=== PATIENT | female | born 1955 | race Caucasian/White ===

== ENCOUNTER 2018-06-12 12:04 | Emergency (ER) | payer MEDICARE ==
[2018-06-12 12:22] VITALS: BP 161/89
--- NOTE | 2018-06-12 13:34 | UC ---
Cardiac HPI - HPI Summary HPI Summary: 2 days of sharp right-sided chest pain that radiates to her back. States she feels like how it felt when she broke her ribs a few years ago. Pain is worse with movement and deep breaths. Denies any recent trauma. - History of Current Complaint Chief Complaint: UCGeneralIllness Stated Complaint: CHEST /RTSIDE PAIN Time Seen by Provider: 06/12/18 12:12 Hx Obtained From: Patient Onset/Duration: Gradual Onset, Lasting Days, Still Present Timing: Constant Initial Severity: Moderate Current Severity: Moderate Pain Intensity: 10 Chest Pain Location: Discrete at: - RIGHT ANTERIOR CHEST Character: Sharp/Stabbing Aggravating Factor(s): Movement, Deep Breaths Alleviating Factor(s): Nothing Associated Signs & Symptoms: Positive: Chest Pain, Back Pain. Negative: Anxiety , Dizziness, SOB, Diaphoresis, Nausea/Vomiting - Allergy/Home Medications Allergies/Adverse Reactions: Allergies Allergy/AdvReac Type Severity Reaction Status Date / Time ipratropium AdvReac See Comment Verified 06/12/18 12:11 PMH/Surg Hx/FS Hx/Imm Hx Cardiovascular History: Hypertension Respiratory History: COPD Other History Of: Negative For: Anticoagulant Therapy - Surgical History Surgical History: Yes Surgery Procedure, Year, and Place: BILATERAL breast augmentation, appendectomy , colon resection, BILATERAL KNEE meniscus REPAIR, tonsils - Family History Known Family History: Positive: Unknown - Social History Alcohol Use: Occasionally Alcohol Amount: 1 glass of wine Substance Use Type: None Smoking Status (MU): Former Smoker Length of Time of Smoking/Using Tobacco: 1 year When Did the Patient Quit Smoking/Using Tobacco: june 15, 2013 - Immunization History Most Recent Influenza Vaccination: never Most Recent Tetanus Shot: 2008 dpt Most Recent Pneumonia Vaccination: never Review of Systems All Other Systems Reviewed And Are Negative: Yes Constitutional: Positive: Negative Skin: Positive: Negative Respiratory: Positive: Negative Cardiovascular: Positive: Chest Pain Gastrointestinal: Positive: Negative Physical Exam Triage Information Reviewed: Yes Appearance: Well-Appearing, No Pain Distress, Well-Nourished Vital Signs: Initial Vital Signs Temp 97.4 F 06/12/18 12:14 Pulse 70 06/12/18 12:14 Resp 18 06/12/18 12:14 BP 161/89 06/12/18 12:14 Pulse Ox 96 06/12/18 12:14 Vital Signs Reviewed: Yes Eyes: Positive: Conjunctiva Clear ENT: Positive: Hearing grossly normal Neck: Positive: Supple, Nontender, No Lymphadenopathy Respiratory: Positive: Normal breath sounds, No respiratory distress, No accessory muscle use, Other: - RIGHT SIDED ANTERIOR CHEST WALL TENDERNESS Cardiovascular Exam: Normal Abdomen Description: Positive: Soft Musculoskeletal: Positive: No Edema Neurological: Positive: Alert Psychological: Positive: Age Appropriate Behavior Skin: Negative: Rashes Diagnostics - Radiology CXR Radiology Interpretation Completed By: Radiologist Summary of Radiographic Findings: Stigmata of obstructive lung disease. No acute pulmonary or cardiac process evident. - Assessment/Plan Course Of Treatment: PATIENT'S SYMPTOMS LIKELY DUE TO PLEURISY. WILL TRY A SHORT COURSE OF STEROIDS AND HAVE RECOMMENDED SHE TAKE IBUPROFEN AROUND THE CLOCK TO SEE IF THIS HELPS HER SYMPTOMS. CHEST X-RAY TODAY SHOWS CHANGES CONSISTENT WITH COPD. ADVISED TO GO TO THE ER WITHOUT FAIL IF HER SYMPTOMS WORSEN. LOW SUSPICION FOR CARDIAC ETIOLOGY AT PRESENT ALTHOUGH GIVEN THAT WE ARE UNABLE TO RULE THIS OUT ENTIRELY WE DISCUSSED TRANSFER TO [facility] [place] ER FOR FURTHER EVALUATION WHICH PATIENT HAS DECLINED TODAY. SHE STATES SHE WILL GO TO THE ED IF HER SYMPTOMS DO NOT IMPROVE OR WORSEN OVER THE NEXT DAY OR 2. - Clinical Impression Provider Diagnosis: Pleurisy Discharge - Sign-Out/Discharge Documenting (check all that apply): Patient Departure All imaging exams completed and their final reports reviewed: Yes - Discharge Plan Condition: Stable Disposition: HOME Prescriptions: predniSONE TAB* [Deltasone 20 MG TAB*] 40 mg PO DAILY #10 tab Patient Education Materials: Pleurisy (ED) Referrals: Katlin Gallegos MD [Primary Care Provider] - 1 Week Additional Instructions: CHEST X-RAY TODAY REVEALS CHANGES CONSISTENT WITH COPD BUT NO CLEAR CAUSE OF YOUR SYMPTOMS TODAY. CONSIDER CHEST WALL PAIN VERSUS PLEURITIS. WILL TRY SHORT BURST OF STEROIDS SEE IF THIS HELPS WITH YOUR SYMPTOMS. RECOMMEND YOU TAKE IBUPROFEN 600 MG EVERY 6 HOURS. STAY WELL-HYDRATED. FOLLOW-UP WITH YOUR PCP. GO TO THE ER WITHOUT FAIL IF YOU DEVELOP WORSENING PAIN, SHORTNESS OF BREATH, FEVER, NAUSEA, SWEATS OR ANY OTHER CONCERNING SYMPTOMS. - Billing Disposition and Condition Condition: STABLE Disposition: Home
== END 2018-06-12 13:46 | disposition home or self-care (01) ==
LOC: UCEAST 12:04
DX: R09.1 Pleurisy (principal); I10 Essential (primary) hypertension; J44.9 Chronic obstructive pulmonary disease, unspecified; Z87.891 Personal history of nicotine dependence; Z88.8 Allergy status to other drugs, medicaments and biological substances
CPT/HCPCS: 71046; 99212; G0463

== ENCOUNTER 2018-08-16 17:04 | Emergency (ER) | payer MEDICARE ==
--- NOTE | 2018-08-16 17:35 | ED ---
GI/ HPI - HPI Summary HPI Summary: Patient is a 63 y/o F presenting to ED with complaints of lower abdominal pain and inability to urinate. She notes that at the beginning of Jul, 2018, patient experienced onset of UTI-like Sx and reports that she had been experiencing "intense" abdominal cramps. Cramps progressively worsened, patient began to experience episodes of vomiting. Patient went to [facility] clinic yesterday, . Urine cultures sent, it was noted that patient had blood in urine on UA. Patient was started on Cefdinir. Sx yesterday are described as "easy", denying pain but reports reduction of urine production. No change in appetite or fluid intake is noted. Today, 08/16/18, she notes urgency of urination with abdominal pain and inability to urinate. No vaginal bleeding is reported. Patient states she did not notice any hematuria. PMHx of HLD, HTN. Patient is on Prozac. PSHx of cholecystectomy. She notes that she consumed "a couple of shots" before coming here. Occasional marijuana usage is noted. FMHx of cardiac disease, cancer. On triage, pain is rated 8/10, nothing is noted to aggravate/alleviate Sx. Home medications and allergies are reviewed. - History of Current Complaint Chief Complaint: EDAbdPain Time Seen by Provider: 08/16/18 17:24 Stated Complaint: POSS UTI PER PT Hx Obtained From: Patient Onset/Duration: Started Weeks Ago - Sx onset a month ago, July 2018, Still Present Timing: Constant, Lasting Weeks - Sx onset a month ago, July 2018 Severity: Severe - 8/10 Current Severity: Severe - 8/10 Pain Intensity: 8 Location of Pain: Other - lower Pain Characteristics: Cramping Associated Signs and Symptoms: Positive: Vomiting, Abdominal Pain, UTI Symptoms - urgency of urination, inability to urinate. Negative: Hematuria - no hematuria noticed by patient Additional Signs & Symptoms: Negative: Vaginal Bleeding Aggravating Factor(s): Nothing Alleviating Factor(s): Nothing - Allergy/Home Medications Allergies/Adverse Reactions: Allergies Allergy/AdvReac Type Severity Reaction Status Date / Time ipratropium AdvReac See Comment Verified 06/12/18 12:11 Home Medications: Home Medications Krill Oil 1,250 mg PO BID 08/16/18 [History Confirmed 08/16/18] Ubidecarenone [Coq10] 100 mg PO DAILY 08/16/18 [History Confirmed 08/16/18] PMH/Surg Hx/FS Hx/Imm Hx Endocrine/Hematology History: Denies: Hx Anticoagulant Therapy, Hx Diabetes, Hx Thyroid Disease Cardiovascular History: Reports: Hx Hypertension Denies: Hx Pacemaker/ICD Respiratory History: Reports: Hx Chronic Obstructive Pulmonary Disease (COPD), Other Respiratory Problems/Disorders - Hx of pneumonia Denies: Hx Asthma GI History: Reports: Other GI Disorders - colon resection diviticulitis Denies: Hx Ulcer History: Reports: Other Problems/Disorders - uti Denies: Hx Renal Disease Musculoskeletal History: Reports: Hx Back Problems - neck djd Denies: Hx Osteoporosis Sensory History: Reports: Hx Contacts or Glasses Denies: Hx Hearing Aid Opthamlomology History: Reports: Hx Contacts or Glasses Neurological History: Reports: Hx Seizures - during etoh withdrawal Psychiatric History: Reports: Hx Anxiety, Hx Depression, Hx Panic Disorder, Hx Substance Abuse - ETOH Denies: Hx Eating Disorder, Hx of Violent Episodes Against Others - Cancer History Hx Chemotherapy: No Hx Radiation Therapy: No - Surgical History Surgery Procedure, Year, and Place: BILATERAL breast augmentation, appendectomy , colon resection, BILATERAL KNEE meniscus REPAIR, tonsils Hx Anesthesia Reactions: No - Immunization History Date of Tetanus Vaccine: Unknown Infectious Disease History: No Infectious Disease History: Denies: Hx Clostridium Difficile, Hx Hepatitis, Hx Human Immunodeficiency Virus (HIV), Hx of Known/Suspected MRSA, Hx Shingles, Hx Tuberculosis, Hx Known/ Suspected VRE, Hx Known/Suspected VRSA, History Other Infectious Disease, Traveled Outside the [place] in Last 30 Days - Family History Known Family History: Positive: Cardiac Disease, Other - FMHx of cancer - Social History Alcohol Use: Occasionally Alcohol Amount: 1 glass of wine Substance Use Type: Reports: None Smoking Status (MU): Former Smoker Length of Time of Smoking/Using Tobacco: 1 year Review of Systems Positive: Abdominal Pain, Vomiting Genitourinary: Other - POSITIVE - INABILITY TO URINATE; NEGATIVE - VAGINAL BLEEDING Positive: urgency - of urination. Negative: hematuria - none noticed by patient All Other Systems Reviewed And Are Negative: Yes Physical Exam - Summary Physical Exam Summary: Appearance: Ill-appearing, moderate pain distress, well-nourished. Left breast is smaller than right. Skin: Warm, color reflects adequate perfusion, dry; Midline scar is noted. Head: Normal Head/Face inspection, atraumatic Eyes: Conjunctiva clear ENT: Normal inspection Neck: Supple, no nodes, no JVD Respiratory: Lungs clear, normal breath sounds, no respiratory distress Cardio: RRR, No murmur, pulses normal, brisk capillary refill Abdomen: Soft, RLQ tenderness is noted, no guarding, no rebound, no masses palpated. Bowel sounds: Present Musculoskeletal: Strength Intact/ROM intact, no calf tenderness, no edema. Psychological: Normal Neuro: Alert, muscle tone normal, no focal deficit Triage Information Reviewed: Yes Vital Signs On Initial Exam: Initial Vitals Temp Pulse Resp BP Pulse Ox 98.5 F 86 18 184/94 97 08/16/18 17:05 08/16/18 17:05 08/16/18 17:05 08/16/18 17:05 08/16/18 17:05 Vital Signs Reviewed: Yes Diagnostics - Vital Signs Vital Signs Temp Pulse Resp BP Pulse Ox 08/16/18 17:05 98.5 F 86 18 184/94 97 - Laboratory Result Diagrams: 08/16/18 17:59 08/16/18 17:59 Lab Statement: Any lab studies that have been ordered have been reviewed, and results considered in the medical decision making process. Re-Evaluation - Re-Evaluation First Eval Re-Evaluation Time: 19:43 Comment: Bladder scan showed 52 cc urine. Patient has urinated in ED. Results of labs and tests were discussed with the patient. She will be discharged to home and follow up with PCP. Patient is agreeable with this. GIGU Course/Dx - Course Course Of Treatment: Patient is a 63 y/o F presenting to ED with complaints of lower abdominal pain and inability to urinate. She notes that at the beginning of Jul, 2018, patient experienced onset of UTI-like Sx and reports that she had been experiencing "intense" abdominal cramps. Cramps progressively worsened, patient began to experience episodes of vomiting. Patient went to [facility] clinic yesterday, 08/15/18. Urine cultures sent, it was noted that patient had blood in urine on UA. Patient was started on Cefdinir. Sx yesterday are described as "easy", denying pain but reports reduction of urine production. No change in appetite or fluid intake is noted. Today, 08/16/18, she notes urgency of urination with abdominal pain and inability to urinate. No vaginal bleeding is reported. Patient states she did not notice any hematuria. PMHx of HLD, HTN. Patient is on Prozac. PSHx of cholecystectomy. She notes that she consumed "a couple of shots" before coming here. Occasional marijuana usage is noted. On physical exam, midline scar is noted, left breast is larger than right breast, RLQ tenderness with no guarding, no rebound, no masses palpated. UA showed trace ketones, 2+ blood, trace leukocyte esterase, 1+ WBC, 3+ RBC, present squamous eptih cells, glucose 1+, ascorbic acid present. Serum alcohol is 66. During ED course, patient received pyridium 200 mg PO. Bladder scan showed 52 cc urine. Patient later urinated in ED. Results of labs and tests were discussed with the patient. She will be discharged to home and follow up with PCP. Patient is agreeable with this. - Diagnoses Provider Diagnoses: UTI (urinary tract infection), Abdominal pain Discharge - Sign-Out/Discharge Documenting (check all that apply): Patient Departure - discharge Patient Received Moderate/Deep Sedation with Procedure: No - Discharge Plan Condition: Stable Disposition: HOME Prescriptions: Phenazopyridine 200 mg (NF) [Pyridium 200 MG tab *] 200 mg PO TID PRN #12 tab PRN Reason: Pain Patient Education Materials: Urinary Tract Infection in Women (ED) Referrals: Katlin Gallegos MD [Primary Care Provider] - 2 Days Additional Instructions: You were able to urinate while you were in the ER. We have sent your urine for culture also, just like [facility] has. We will notify you if you need to change your antibiotics based on these culture results. Your kidney function was normal, as were your other lab tests, and your cramping improved while you were in the ER. You do not have to finish the pyridium prescription, but you may use it if you feel like you cannot urinate, or if you have abdominal cramping. Continue the Cefdinir antibiotic as directed and finish the entire prescription. Return to the ER if you have new or worsening symptoms. - Attestation Statements Document Initiated by Scribe: Yes Documenting Scribe: LION VARGAS Provider For Whom Sushila is Documenting (Include Credential): LEDY CARTER MD Scribe Attestation: LION Gifford, scribed for LEDY CARTER MD on 08/16/18 at 2110. Status of Scribe Document: Ready
[2018-08-16 18:07] LABS: ABS Basophils 0.1 10^3/ul (0-0.2); ABS Eosinophils 0.2 10^3/ul (0-0.6); ABS Lymphocytes 1.8 10^3/ul (1.0-4.8); ABS Monocytes 0.8 10^3/ul (0-0.8); ABS Neutrophils 5.3 10^3/ul (1.5-7.7); Eosinophil % 2.3 %; Hematocrit 42 % (35-47); Hemoglobin 14.1 g/dL (12.0-16.0); Lymphocyte % 22.5 %; Mean Corpuscular HGB Conc 34 g/dL (31-36); Mean Corpuscular Hemoglobin 32 pg (27-31); Mean Corpuscular Volume 95 fL (80-97); Mean Platelet Volume 7.6 fL (7.4-10.4); Platelet Count 282 10^3/uL (150-450); Red Blood Count 4.41 10^6 /uL (3.70-4.87); Red Cell Distribution Width 13 % (10.5-15); White Blood Count 8.1 10^3/uL (3.5-10.8)
[2018-08-16 18:11] LABS: Urine Appearance Clear; Urine Bacteria Absent (Absent); Urine Bilirubin Negative (Negative); Urine Blood 2+ (Negative); Urine Color Yellow; Urine Glucose 1+(50 mg/dL) (Negative); Urine Ketones Trace (Negative); Urine Nitrite Negative (Negative); Urine Protein Negative (Negative); Urine Red Blood Cell 3+(>10/hpf) (Absent); Urine Specific Gravity 1.014 (1.010-1.030); Urine Squamous Epithelial Cell Present (Absent); Urine Urobilinogen Negative (Negative); Urine White Blood Cell 1+(6-10/hpf) (Absent)
[2018-08-16 18:24] LABS: Albumin 4.3 g/dL (3.2-5.2); Albumin/Globulin Ratio 1.7 (1-3); BUN/Creatinine Ratio 21.9 (8-20); C Reactive Protein 2.16 mg/L (<8.01); Calcium 9.2 mg/dL (8.6-10.3); EGFR African American 113.4 (>60); EGFR Non-African American 93.7 (>60); Globulin 2.5 g/dL (2-4); Potassium 3.5 mmol/L (3.5-5.0); Total Bilirubin 0.4 mg/dL (0.2-1.0); Total Protein 6.8 g/dL (6.4-8.9)
[2018-08-16] MEDS ORDERED: Phenazopyridine TAB* 100 MG PO ONE (19:52)
[2018-08-16 20:15] VITALS: BP 168/101
== END 2018-08-16 20:14 | disposition home or self-care (01) ==
LOC: ED 17:04
DX: N39.0 Urinary tract infection, site not specified (principal); R10.30 Lower abdominal pain, unspecified; R11.10 Vomiting, unspecified; I10 Essential (primary) hypertension; Z87.891 Personal history of nicotine dependence
CPT/HCPCS: 36415; 80053; 80320; 81003; 81015; 85025; 86140; 87086; 99283; A9270-GY; G0480

== ENCOUNTER 2018-11-16 20:55 | Emergency (ER) | payer MEDICARE ==
[2018-11-16 21:02] VITALS: BP 161/87
[2018-11-16 21:19] LABS: ABS Basophils 0.1 10^3/ul (0-0.2); ABS Lymphocytes 2.9 10^3/ul (1.0-4.8); ABS Monocytes 0.7 10^3/ul (0-0.8); Eosinophil % 0.7 %; Hematocrit 46 % (35-47); Hemoglobin 15.7 g/dL (12.0-16.0); Lymphocyte % 43.5 %; Mean Corpuscular HGB Conc 34 g/dL (31-36); Mean Corpuscular Hemoglobin 33 pg (27-31); Mean Corpuscular Volume 98 fL (80-97); Mean Platelet Volume 7.3 fL (7.4-10.4); Nucleated Red Blood Cells % 0.2; Platelet Count 216 10^3/uL (150-450); Red Blood Count 4.72 10^6 /uL (3.70-4.87); Red Cell Distribution Width 14 % (10-15); White Blood Count 6.7 10^3/uL (3.5-10.8)
[2018-11-16 21:29] LABS: INR 0.93 (0.82-1.09)
[2018-11-16] MEDS ORDERED: NS 0.9% 1000 ML** 1,000 ML IV ONE (21:34)
[2018-11-16] MEDS ORDERED: Metoclopramide IV* 5 MG/ML 2 ML VIAL IV ONE (21:34)
[2018-11-16 21:36] LABS: Albumin 4.4 g/dL (3.2-5.2); Albumin/Globulin Ratio 1.6 (1-3); BUN/Creatinine Ratio 14.1 (8-20); Calcium 8.8 mg/dL (8.6-10.3); EGFR African American 113.4 (>60); EGFR Non-African American 93.7 (>60); Globulin 2.7 g/dL (2-4); Potassium 3.3 mmol/L (3.5-5.0); Total Bilirubin 0.6 mg/dL (0.2-1.0); Total Protein 7.1 g/dL (6.4-8.9)
--- NOTE | 2018-11-16 21:37 | ED ---
Complex/Multi-Sys Presentation - HPI Summary HPI Summary: This pt is a 63 y/o female w hx EtOH abuse presenting to [facility] via EMS for hand spasms today. Pt reports she is a chronic alcoholic and today drank over 1L of vodka. She notes she had hand spasms/locking in the past about a couple of years ago due to low electrolytes. Per EMS pt has hx of seizures and upon arriving to the ED pt was c/o eye twitching but did not have any seizure like activity. Pt states she had a headache for the past couple of days, denies headache today. No current photophobia, nausea or vomiting. No trauma/falls. No recent seizures. EMS states pt has not eaten in 2-3 days. - History Of Current Complaint Chief Complaint: EDGeneral Time Seen by Provider: 11/16/18 21:05 Hx Obtained From: Patient Onset/Duration: Lasting Hours, Still Present Timing: Hours Severity Currently: Moderate Aggravating Factor(s): nothing Alleviating Factor(s): nothing Associated Signs And Symptoms: Positive: Headache, Other - POSITIVE: photophobia , hand spasms/locked.. Negative: Nausea, Fever Related History: Similar Episode/Diagnosed As: - a couple of years ago when she had low electrolytes - Allergies/Home Medications Allergies/Adverse Reactions: Allergies Allergy/AdvReac Type Severity Reaction Status Date / Time ipratropium AdvReac See Comment Verified 11/16/18 21:02 PMH/Surg Hx/FS Hx/Imm Hx Endocrine/Hematology History: Denies: Hx Anticoagulant Therapy, Hx Diabetes, Hx Thyroid Disease Cardiovascular History: Reports: Hx Hypercholesterolemia, Hx Hypertension Denies: Hx Pacemaker/ICD Respiratory History: Reports: Hx Chronic Obstructive Pulmonary Disease (COPD), Hx Pneumonia, Other Respiratory Problems/Disorders - Hx of pneumonia Denies: Hx Asthma GI History: Reports: Hx Diverticulosis - diverticulitis , Other GI Disorders - colon resection diviticulitis Denies: Hx Ulcer History: Reports: Other Problems/Disorders - uti Denies: Hx Renal Disease Musculoskeletal History: Reports: Hx Back Problems - neck djd Denies: Hx Osteoporosis Sensory History: Reports: Hx Contacts or Glasses Denies: Hx Hearing Aid Opthamlomology History: Reports: Hx Contacts or Glasses Neurological History: Reports: Hx Seizures - during etoh withdrawal Psychiatric History: Reports: Hx Anxiety, Hx Depression, Hx Panic Disorder, Hx Substance Abuse - ETOH Denies: Hx Eating Disorder, Hx of Violent Episodes Against Others - Cancer History Hx Chemotherapy: No Hx Radiation Therapy: No - Surgical History Surgery Procedure, Year, and Place: BILATERAL breast augmentation, appendectomy , colon resection, BILATERAL KNEE meniscus REPAIR, tonsils, CHOLECYSTECTOMY Hx Anesthesia Reactions: No - Immunization History Date of Tetanus Vaccine: Unknown Infectious Disease History: No Infectious Disease History: Denies: Hx Clostridium Difficile, Hx Hepatitis, Hx Human Immunodeficiency Virus (HIV), Hx of Known/Suspected MRSA, Hx Shingles, Hx Tuberculosis, Hx Known/ Suspected VRE, Hx Known/Suspected VRSA, History Other Infectious Disease, Traveled Outside the [place] in Last 30 Days - Family History Known Family History: Positive: Cardiac Disease, Other - FMHx of cancer - Social History Alcohol Use: Daily Alcohol Amount: hx ETOH abuse Hx Substance Use: Yes Substance Use Type: Reports: None Hx Tobacco Use: Yes Smoking Status (MU): Former Smoker Length of Time of Smoking/Using Tobacco: 1 year Review of Systems Negative: Fever, Chills Negative: Vomiting, Nausea Musculoskeletal: Other - POSITIVE: hand spasms/locked Positive: Headache - none today All Other Systems Reviewed And Are Negative: Yes Physical Exam - Summary Physical Exam Summary: Constitutional: Well-developed, Well-nourished, Alert. (-) Distressed Skin: Warm, Dry HENT: Normocephalic; Atraumatic Eyes: Conjunctiva normal Neck: Musculoskeletal ROM normal neck. (-) JVD, (-) Stridor Cardio: Rhythm regular, rate normal, Heart sounds normal; Intact distal pulses; Radial pulses are 2+ and symmetric. (-) Murmur Pulmonary/Chest wall: Effort normal. (-) Respiratory distress, (-) Wheezes, (-) Rales Abd: Soft, (-) tenderness, (-) Distension, (-) Guarding, (-) Rebound Musculoskeletal: (-) Edema. Clenching of the fists. Lymph: (-) Cervical adenopathy Neuro: Alert, Oriented x3, CN 2-12 intact. Ambulates w steady gait. Psych: Mood and affect Normal Triage Information Reviewed: Yes Vital Signs On Initial Exam: Initial Vitals Temp Pulse Resp BP Pulse Ox 98.3 F 78 18 161/87 98 11/16/18 20:57 11/16/18 20:57 11/16/18 20:57 11/16/18 20:57 11/16/18 20:57 Vital Signs Reviewed: Yes Diagnostics - Vital Signs Vital Signs Temp Pulse Resp BP Pulse Ox 11/16/18 20:57 98.3 F 78 18 161/87 98 - Laboratory Lab Results: Lab Results 11/16/18 Range/Units 21:11 WBC 6.7 (3.5-10.8) 10^3/uL RBC 4.72 (3.70-4.87) 10^6 /uL Hgb 15.7 (12.0-16.0) g/dL Hct 46 (35-47) % MCV 98 H (80-97) fL MCH 33 H (27-31) pg MCHC 34 (31-36) g/dL RDW 14 (10-15) % Plt Count 216 (150-450) 10^3/uL MPV 7.3 L (7.4-10.4) fL Neut % (Auto) 44.8 % Lymph % (Auto) 43.5 % Sutter % (Auto) 9.8 % Eos % (Auto) 0.7 % Baso % (Auto) 1.2 % Absolute Neuts (auto) 3.0 (1.5-7.7) 10^3/ul Absolute Lymphs (auto) 2.9 (1.0-4.8) 10^3/ul Absolute Monos (auto) 0.7 (0-0.8) 10^3/ul Absolute Eos (auto) 0.0 (0-0.6) 10^3/ul Absolute Basos (auto) 0.1 (0-0.2) 10^3/ul Absolute Nucleated RBC 0.0 10^3/ul Nucleated RBC % 0.2 Result Diagrams: 11/16/18 21:11 11/16/18 21:11 Lab Statement: Any lab studies that have been ordered have been reviewed, and results considered in the medical decision making process. Re-Evaluation - Re-Evaluation First Eval Re-Evaluation Time: 21:58 Comment: Labs notable for K 3.3 will replete however on re-eval, pt eloped. Attempted to call PD to find patient for concern that she has IV in arm. Complex Multi-Symp Course/Dx Course Of Treatment: 53-year-old female the history of alcohol abuse presents with and cramps as well as headache for several days. This is a patient who presents with headache (now resolved). History of headaches of similar type. No trauma. This is not the worst headache patient has had, and no additional features today to suggest need for further workup on a truly emergent basis ( imaging, LP, etc). Will give IVF, reglan for intermittent nausea. Regarding hand cramping, we'll check electrolytes, however patient was noted to voluntarily unclamp hands despite saying she couldnt. - Diagnoses Provider Diagnoses: Alcohol abuse, Muscle cramp Discharge ED - Sign-Out/Discharge Documenting (check all that apply): Patient Departure - Elopement Patient Received Moderate/Deep Sedation with Procedure: No - Discharge Plan Condition: Stable Disposition: ELOPEMENT Patient Education Materials: Tension Headache (ED), Hypokalemia (ED), Muscle Cramp (ED) Referrals: Katlin Gallegos MD [Primary Care Provider] - Additional Instructions: You were seen in the emergency department for muscle cramps. He had low potassium, we give it to here. Please try to cut down on drinking. You can try this by drinking one less drink per day and slowly cutting down. You also had a headache, we gave you medicine and some fluids. Please return for continued headaches, passing out, fevers, trouble breathing, chest pain, or if you're concerned. - Billing Disposition and Condition Condition: STABLE Disposition: Elopement - Attestation Statements Document Initiated by Sushila: Yes Documenting Scribe: April Valentine Provider For Whom Sushila is Documenting (Include Credential): Jocelyn Flanagan MD Scribe Attestation: I, April Valentine, scribed for Jocelyn Flanagan MD on 11/16/18 at 2209. Scribe Documentation Reviewed: Yes Provider Attestation: The documentation as recorded by the April odonnell accurately reflects the service I personally performed and the decisions made by , Jocelyn Flanagan MD Status of Scribe Document: Viewed
[2018-11-16] MEDS ORDERED: Potassium Chlor TAB* 20 MEQ TAB.ER PO ONE (21:38)
[2018-11-16] MEDS ORDERED: LORazepam TAB(*) 1 MG PO ONE (21:39)
--- OUTSIDE RECORDS SUMMARY | 2018-11-16 22:00 | XMS REPORT | Continuity of Care Document ---
:1955 External Reference #:[id number] Author Name Arcelia Doyle Care Team Providers Name Role Phone Katlin Gallegos MD Primary Care Physician Unavailable Payers Date Identification Numbers Payment Provider Subscriber Policy Number: [id number] Medicare Blue Ppo Elbert Mueller PayID: [id number] [address] [address] [place] Galindo [address] Advance Directives Type Date Description Status Comment MOLST 12/17/2017 MOLST Current and Verified Problems Active Problems Provider Date Lumbar radiculopathy Maurisio Mcwilliams M.D. Onset: 08/25/2015 Cervical spondylosis without myelopathy Maurisio Mcwilliams M.D. Onset: 08/25/2015 Hypercholesterolemia Katlin Gallegos M.D. Onset: 08/30/2015 Impaired fasting glycaemia Katlin Gallegos M.D. Onset: 08/30/2015 Gastritis Katlin Gallegos M.D. Onset: 01/08/2016 Note: PPI 40 since 09/29 Osteopenia Katlin Gallegos M.D. Onset: 06/20/2016 Alcohol abuse Katlin Gallegos M.D. 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 Tobacco Use Start: Unknown Former Cigarette End: Unknown Smoker Smoking Status Reviewed: 10/21/18 Former Cigarette Smoker ETOH Use Has consumed alcohol underwent inpatient in the past rehab in [facility] 2013 , has been sober since Tobacco Use Start: Unknown Patient is a former Started age 16; quit End: Unknown smoker 2013; smoked a pack per week Quit January 2018 Recreational Drug Use Denies Drug Use Exercise Type/Frequency Exercises regularly Allergies, Adverse Reactions, Alerts Description No Known Drug Allergies Medications Active Medications SIG Qnty Indications Ordering Date Provider Krill Oil [place]-3 Twice Daily Unknown 08/16/2018 500mg Capsules Fluticasone use 2 sprays in each 16units J30.9 Lilyofia Joel, 05/06/2018 Propionate nostril one time a CREDIT CONTROL MANAGER day 50mcg/Act Suspension Loratadine 1 by mouth every day 90caps J30.9 ofia Joel, 05/06/2018 10mg CREDIT CONTROL MANAGER Capsules Nystatin swish and spit 10 cc 60ml [facility] 01/28/2018 bid X 7 days Deo Gallegos [id number] Suspension Shingrix intramuscular x 1 1units [facility] 12/17/2017 50mcg then repeat in 4 Deo Gallegos Suspension Rec months Symbicort 2 puff twice a day 10.2units [facility], 10/23/2016 CREDIT CONTROL MANAGER 160-4.5mcg/Act Aerosol Fluoxetine HCL Take One Capsule By 90caps Katlin 07/25/2016 10mg Mouth Every Day Deo Gallegos Capsules Omeprazole Take One Capsule By 90caps K29.00 [facility] 06/20/2016 20mg Mouth Every Day Deo Gallegos Capsules DR Atorvastatin Take One Tablet By 90tabs R73.01 [facility] 08/30/2015 Calcium Mouth Every Day Deo Gallegos 20mg Tablets Ventolin HFA 2 puffs by mouth 8gm J20.9 Katlin four times a day as Deo Gallegos 108(90Base) mcg/Act needed Aerosol Ibuprofen as needed Unknown 200mg Tablets Ultra Women Daily once daily Unknown Multivitamin Tablets ER Amlodipine Besylate Take One Tablet By 90tabs Katlin Mouth Every Day Deo Gallegos 5mg Tablets History Medications Breo Ellipta 1 puff inhaled 60units [facility] 09/02/2016 - daily Deo Gallegos 10/23/2016 200-25mcg/Inh Aerosol Crill Oil [facility] 06/20/2016 - Deo Gallegos 12/17/2017 Fluoxetine 1 by mouth every 90caps Katlin 04/22/2016 - 10mg Capsules day Deo Gallegos 04/22/2016 Fluoxetine HCL Not Taking 90caps [facility] 04/22/2016 - 10mg Deo Gallegos 06/20/2016 Capsules Fluoxetine HCL once daily 30tabs Katlin 04/19/2016 - 10mg Deo Gallegos 04/22/2016 Tablets Prednisone 2 tablets by mouth 10tabs J20.9 Emil Canseco, 04/17/2016 - 20mg Tablets daily x's 5 days [employer]ALTH AND WELLNESS MANAGER 04/22/2016 in the morning Azithromycin 2 tabs by mouth on 6tabs J20.9 Emil Canseco, 04/17/2016 - 250mg day 1; 1 tab by HEALTH AND WELLNESS MANAGER 04/22/2016 Tablets mouth every day on days 2-5 Diazepam stopped by MD1 tab 30tabs F41.9 [facility] 10/11/2015 - 5mg Tablets as needed for Deo Gallegos 06/20/2016 anxiety attacks Omeprazole take one capsule 90caps K29.00 [facility] 10/11/2015 - 40mg Capsules by mouth every day Deo Gallegos 06/20/2016 DR Ayesha Gerard 1 puff twice a day 1units Katlin 08/23/2015 - Deo Gallegos 01/08/2016 400mcg/Act Aerosol Spiriva Handihaler inhale one capsule 30caps J44.9 [facility] 07/26/2015 - 18mcg via handi-haler Deo Gallegos 08/23/2015 Capsules once daily- use 2 inhalations to receive full dosage Symbicort 2 puff inhaled 1units J44.9 [facility] 07/26/2015 - 160-4.5mcg/Act twice a day Deo Gallegos 09/02/2016 Aerosol Co Q-10 Unknown - Capsules 08/19/2017 Acetaminophen Extra 2 tab by mouth a Unknown - Strength day as needed 08/18/2018 500mg Tablets Vitamin B-12 Unknown - Tablets 01/07/2016 Biotin once daily Unknown - 5000mcg Tablets 01/07/2016 Symbicort 2 puff twice a day 18gm Katlin - 160-4.5mcg/Act Deo Gallegos 07/26/2015 Aerosol Vicodin 1-2 by mouth qd 30tabs Katlin - 5-300mg Tablets prn Deo Gallegos 04/17/2016 Diazepam Unknown - 5mg Tablets 10/11/2015 Fluoxetine HCL 1 daily 90caps Katlin - 20mg Deo Gallegos 04/19/2016 Capsules Omeprazole take 1 capsule by 90caps Katlin - 20mg Capsules mouth daily Deo Gallegos 10/11/2015 Cyclobenzaprine HCL 1 by mouth daily 30tabs Katlin - 10mg prmal Gallegos M.D. 01/08/2016 Tablets Immunizations CPT Code Status Date Vaccine Lot # [id number] Given 01/12/2018 Influenza Virus Vaccine, Quadrivalent, Split, Preservative Free [id number] Given 12/17/2017 Pneumococcal Conjugate Vaccine 13 Valent For [id number] Intramuscular Use 73050 Given 02/12/2016 Influ Virus Vaccine, Quadrivalent, Split Virus, [place] [id number] Given 07/26/2009 Hepatitis B Vaccine Adult Dosage 16398 Given 09/20/2008 Tdap - Tetanus/Diptheria/Acellular Pertussis Vital Signs Date Vital Result Comment 10/21/2018 1:03pm Height 65 inches 5'5" Weight 154.00 lb Heart Rate 76 /min BP Systolic Sitting 176 mmHg Rue reg cuff BP Diastolic Sitting 90 mmHg Rue reg cuff O2 % BldC Oximetry 91 % BMI (Body Mass Index) 25.6 kg/m2 08/19/2018 1:55pm Height 65 inches 5'5" Weight 154.50 lb Heart Rate 89 /min BP Systolic 134 mmHg BP Diastolic 75 mmHg Body Temperature 97.6 F O2 % BldC Oximetry 96 % BMI (Body Mass Index) 25.7 kg/m2 Last Menstrual Period [id number] 05/06/2018 1:58pm Height 65 inches 5'5" Weight 164.00 lb Heart Rate 85 /min BP Systolic Sitting 128 mmHg BP Diastolic Sitting 82 mmHg Body Temperature 98.4 F O2 % BldC Oximetry 96 % BMI (Body Mass Index) 27.3 kg/m2 12/17/2017 1:20pm Height 65 inches 5'5" Weight 162.00 lb Heart Rate 72 /min BP Systolic Sitting 130 mmHg BP Diastolic Sitting 78 mmHg O2 % BldC Oximetry 96 % BMI (Body Mass Index) 27.0 kg/m2 06/20/2016 11:45am Weight 169.25 lb Heart Rate 76 /min BP Systolic 140 mmHg BP Diastolic 76 mmHg Body Temperature 97.6 F O2 % BldC Oximetry 96 % 04/17/2016 1:03pm Weight 164.12 lb Heart Rate 92 /min BP Systolic Sitting 138 mmHg BP Diastolic Sitting 86 mmHg Body Temperature 99.7 F O2 % BldC Oximetry 97 % 01/08/2016 11:41am Height 65 inches 5'5" Weight 168.00 lb Heart Rate 86 /min BP Systolic Sitting 160 mmHg BP Diastolic Sitting 90 mmHg Body Temperature 97.5 F O2 % BldC Oximetry 97 % BMI (Body Mass Index) 28.0 kg/m2 10/11/2015 11:34am Weight 166.00 lb Heart Rate 90 /min BP Systolic Sitting 114 mmHg BP Diastolic Sitting 68 mmHg Body Temperature 97.7 F O2 % BldC Oximetry 97 % 09/20/2015 9:04am Height 65 inches 5'5" Weight 163.00 lb Heart Rate 91 /min BP Systolic 131 mmHg BP Diastolic 74 mmHg BMI (Body Mass Index) 27.1 kg/m2 08/30/2015 1:41pm Weight 163.00 lb Heart Rate 97 /min BP Systolic Sitting 117 mmHg BP Diastolic Sitting 72 mmHg Body Temperature 96.9 F 08/25/2015 11:12am Height 65 inches 5'5" Weight 163.00 lb Heart Rate 78 /min BP Systolic Sitting 122 mmHg BP Diastolic Sitting 70 mmHg Pain Level 6 BMI (Body Mass Index) 27.1 kg/m2 07/26/2015 2:25pm Height 55.5 inches 4'7.50" Weight 160.00 lb Heart Rate 76 /min BP Systolic Sitting 128 mmHg BP Diastolic Sitting 76 mmHg Body Temperature 98.2 F O2 % BldC Oximetry 98 % BMI (Body Mass Index) 36.5 kg/m2 Results Test Date Facility Test Result H/L Range Note Urine Culture And [facility] Urine SEE RESULT 1 Sensitivities [address] [place] [address] [phone] CBC Auto Diff [facility] White Blood 8.1 10^3/uL Normal 3.5-10.[address] [place] [address] [phone] Red Blood Count 4.41 10^6/uL Normal 3.70-4.87 Hemoglobin 14.1 g/dL Normal 12.0-16.0 Hematocrit 42 % Normal 35-47 Mean Corpuscular Volume 95 fL Normal 80-97 Mean Corpuscular Hemoglobin 32 pg High 27-31 Mean Corpuscular HGB Conc 34 g/dL Normal 31-36 Red Cell Distribution Width 13 % Normal 10.5-15 Platelet Count 282 10^3/uL Normal 150-450 Mean Platelet Volume 7.6 fL Normal 7.4-10.4 Abs Neutrophils 5.3 10^3/uL Normal 1.5-7.7 Abs Lymphocytes 1.8 10^3/uL Normal 1.0-4.8 Abs Monocytes 0.8 10^3/uL Normal 0-0.8 Abs Eosinophils 0.2 10^3/uL Normal 0-0.6 Abs Basophils 0.1 10^3/uL Normal 0-0.2 Abs Nucleated RBC 0.0 10^3/uL Granulocyte % 64.7 % Lymphocyte % 22.5 % Monocyte % 9.4 % Eosinophil % 2.3 % Basophil % 1.1 % Nucleated Red Blood Cells % 0.0 Urinalysis Profile 08/16/2018 [facility] Urine Color Yellow [address] [place] [address] [phone] Urine Appearance Clear Urine Specific [place] 1.014 Normal 1.010-1.030 Urine pH 6.0 Normal 5-9 Urine Urobilinogen Negative Negative Urine Ketones Trace Abnormal Negative Urine Protein Negative Negative Urine Leukocytes Trace Abnormal Negative Urine Blood 2+ Abnormal Negative * * Abnormal Negative 2 Urine Nitrite Negative Negative Urine Bilirubin Negative Negative Urine Glucose 1+(50 mg/dL) Abnormal Negative Urine White Blood Cell 1+(6-10/hpf) Abnormal Absent Urine Red Blood Cell 3+(>10/hpf) Abnormal Absent Urine Bacteria Absent Absent Urine Squamous Epithelial Cell Present Abnormal Absent Comp Metabolic 08/16/2018 [facility] Sodium 139 mmol/L Normal 135-[address] [place] [address] [phone] Potassium 3.5 mmol/L Normal 3.5-5.0 Chloride 105 mmol/L Normal 101-111 Co2 Carbon Dioxide 27 mmol/L Normal 22-32 Anion Gap 7 mmol/L Normal 2-11 Glucose 98 mg/dL Normal 70-100 Blood Urea Nitrogen 14 mg/dL Normal 6-24 Creatinine 0.64 mg/dL Normal 0.51-0.95 BUN/Creatinine Ratio 21.9 High 8-20 Calcium 9.2 mg/dL Normal 8.6-10.3 Total Protein 6.8 g/dL Normal 6.4-8.9 Albumin 4.3 g/dL Normal 3.2-5.2 Globulin 2.5 g/dL Normal 2-4 Albumin/Globulin Ratio 1.7 Normal 1-3 Total Bilirubin 0.40 mg/dL Normal 0.2-1.0 Alkaline Phosphatase 62 U/L Normal 34-104 Alt 52 U/L Normal 7-52 Ast 38 U/L Normal 13-39 Egfr Non- 93.7 >60 Egfr 113.4 >60 3 Laboratory test 08/16/2018 [facility] C Reactive 2.16 mg/L Normal <8.[address] [place] [address] [phone] Alcohol 66 mg/dL High <10 Laboratory test 12/29/2017 [facility] Hemoglobin A1c 6.1 % High 4.0-5.[address] (Glyco HGB) [place] [address] [phone] Comp Metabolic 12/29/2017 [facility] Sodium 143 Normal 135- [address] mmol/[place] [address] [phone] Potassium 4.1 mmol/L Normal 3.5-5.0 Chloride 106 mmol/L Normal 101-111 Co2 Carbon Dioxide 29 mmol/L Normal 22-32 Anion Gap 8 mmol/L Normal 2-11 Glucose 115 mg/dL High 70-100 Blood Urea Nitrogen 16 mg/dL Normal 6-24 Creatinine 0.66 mg/dL Normal 0.51-0.95 BUN/Creatinine Ratio 24.2 High 8-20 Calcium 9.2 mg/dL Normal 8.6-10.3 Total Protein 6.1 g/dL Low 6.4-8.9 Albumin 4.2 g/dL Normal 3.2-5.2 Globulin 1.9 g/dL Low 2-4 Albumin/Globulin Ratio 2.2 Normal 1-3 Total Bilirubin 0.50 mg/dL Normal 0.2-1.0 Alkaline Phosphatase 54 U/L Normal 34-104 Alt 17 U/L Normal 7-52 Ast 14 U/L Normal 13-39 Egfr Non- 90.7 >60 Egfr 109.8 >60 5 Lipid Profile 12/29/2017 [facility] Triglycerides 118 mg/dL 6 (Trig/Chol/HDL) [address] [place] [address] [phone] Cholesterol 190 mg/dL 7 HDL Cholesterol 48.4 mg/dL 8 LDL Cholesterol 118 mg/dL 9 Laboratory test 12/17/2017 [facility] Cytology SEE RESULT [address] [place] [address] [phone] Laboratory test 05/02/2017 [facility] Surgical Pathology SEE RESULT 11, [address] BEL[address] [place], [place] [id number] [phone] Lipid Profile 02/03/2017 [facility] Triglycerides 125 mg/dL 13 (Trig/Chol/HDL) [address] [place], [place] [id number] [phone] Cholesterol 173 mg/dL 14 HDL Cholesterol 49.0 mg/dL 15 LDL Cholesterol 99 mg/dL 16 Laboratory test 02/03/2017 [facility] Hemoglobin A1c 5.9 % High 4.0-5.6 [address] (Glyco HGB) [place], [place] [id number] [phone] Comp Metabolic 02/03/2017 [facility] Sodium 139 Normal 133- [address] mmol/L [place], [place] [id number] [phone] Potassium 3.8 mmol/L Normal 3.5-5.0 Chloride 104 mmol/L Normal 101-111 Co2 Carbon Dioxide 29 mmol/L Normal 22-32 Anion Gap 6 mmol/L Normal 2-11 Glucose 103 mg/dL High 70-100 Blood Urea Nitrogen 16 mg/dL Normal 6-24 Creatinine 0.65 mg/dL Normal 0.51-0.95 BUN/Creatinine Ratio 24.6 High 8-20 Calcium 9.0 mg/dL Normal 8.6-10.3 Total Protein 6.4 g/dL Normal 6.4-8.9 Albumin 4.3 g/dL Normal 3.2-5.2 Globulin 2.1 g/dL Normal 2-4 Albumin/Globulin Ratio 2.0 Normal 1-3 Total Bilirubin 0.70 mg/dL Normal 0.2-1.0 Alkaline Phosphatase 45 U/L Normal 34-104 Alt 17 U/L Normal 7-52 Ast 15 U/L Normal 13-39 Egfr Non- 92.7 >60 Egfr 119.2 >60 18 Laboratory 02/03/2017 [facility] TSH (Thyroid 2.49 Normal 0.34 -5.60 19 test finding [address] Stim Horm) mcIU/[place] [address] [phone] CBC Auto Diff 02/03/2017 [facility] White Blood 5.7 Normal 3.5 -10.[address] Count 10^3/[place] [address] [phone] Red Blood Count 4.65 10^6/uL Normal 4.0-5.4 Hemoglobin 14.3 g/dL Normal 12.0-16.0 Hematocrit 43 % Normal 35-47 Mean Corpuscular Volume 93 fL Normal 80-97 Mean Corpuscular Hemoglobin 31 pg Normal 27-31 Mean Corpuscular HGB Conc 33 g/dL Normal 31-36 Red Cell Distribution Width 13 % Normal 10.5-15 Platelet Count 282 10^3/uL Normal 150-450 Mean Platelet Volume 8 um3 Normal 7.4-10.4 Abs Neutrophils 3.4 10^3/uL Normal 1.5-7.7 Abs Lymphocytes 1.6 10^3/uL Normal 1.0-4.8 Abs Monocytes 0.6 10^3/uL Normal 0-0.8 Abs Eosinophils 0.1 10^3/uL Normal 0-0.6 Abs Basophils 0.1 10^3/uL Normal 0-0.2 Abs Nucleated RBC 0 10^3/uL Granulocyte % 58.8 % Normal 38-83 Lymphocyte % 27.1 % Normal 25-47 Monocyte % 10.5 % High 1-9 Eosinophil % 2.5 % Normal 0-6 Basophil % 1.1 % Normal 0-2 Nucleated Red Blood Cells % 0 Laboratory test 06/20/2016 [facility] Hemoglobin A1c 6.0 % Normal Less than [address] (Glyco HGB) 6.0 [place] [address] [phone] Hepatitis C Antibody Nonreactive Normal Nonreactive 21 Comp Metabolic 06/20/2016 [facility] Sodium 140 mmol/L Normal 133-145 Panel [address] [place] [address] [phone] Potassium 3.8 mmol/L Normal 3.5-5.0 Chloride 104 mmol/L Normal 101-111 Co2 Carbon Dioxide 28 mmol/L Normal 22-32 Anion Gap 8 mmol/L Normal 2-11 Glucose 115 mg/dL High 70-100 Blood Urea Nitrogen 17 mg/dL Normal 6-24 Creatinine 0.59 mg/dL Normal 0.51-0.95 BUN/Creatinine Ratio 28.8 High 8-20 Calcium 9.2 mg/dL Normal 8.6-10.3 Total Protein 6.7 g/dL Normal 6.4-8.9 Albumin 4.2 g/dL Normal 3.2-5.2 Globulin 2.5 g/dL Normal 2-4 Albumin/Globulin Ratio 1.7 Normal 1-3 Total Bilirubin 0.80 mg/dL Normal 0.2-1.0 Alkaline Phosphatase 62 U/L Normal 34-104 Alt 22 U/L Normal 7-52 Ast 19 U/L Normal 13-39 Egfr Non- 104.0 Normal >60 Egfr 133.7 Normal >60 22 Lipid Profile 06/20/2016 [facility] Triglycerides 146 mg/dL Normal 23 (Trig/Chol/HDL) [address] [place], [place] [id number] [phone] Cholesterol 282 mg/dL Normal 24 HDL Cholesterol 48.6 mg/dL Normal 25 LDL Cholesterol 204 mg/dL Normal 26 Benzodiazepine 01/08/2016 [facility] Urine Negative Normal [address] Lorazepam ng/[place] [address] GC/MS [phone] Urine Nordiazepam GC/MS 720 ng/mL Normal 28 Urine Oxazepam GC/MS 2531 ng/mL Normal 29 Urine Temazepam GC/MS 1867 ng/mL Normal 30 Ur Oh Ethyl Flurazepam GC/MS Negative ng/mL Normal 31 Ur 7 NH Clonazepam GC/MS Negative ng/mL Normal 32 Ur 7 NH Flunitrazepam GC/MS Negative ng/mL Normal Cutoff: 50 Ur Alpha Oh Alprazolam GC/MS Negative ng/mL Normal 33 Ur Alpha Oh Triazolam GC/MS Negative ng/mL Normal 34 Ur Benzodiazepine Interp See Comment Normal 35 Drug Abuse 01/08/2016 [facility] Urine Amphetamine Negative ng/ mL Normal 36 [address] [place] [address] [phone] Urine Barbiturates Negative ng/mL Normal 37 Urine Benzodiazepines Presumptive Posi <SEE NOTE> ng/mL Normal 38 Urine Cocaine Negative ng/mL Normal 39 Urine Phencyclidine Negative ng/mL Normal Cutoff: 25 Urine Tetrahydrocannabinol Negative ng/mL Normal Cutoff: 50 40 Creatinine 250.6 mg/dL Normal Specific [place] 1.018 Normal pH 6.9 Normal Oxidants Negative Normal 41 Adulterants Comment Normal Normal Codeine, Ur Not Detected ng/mL Normal Cutoff: 25 42 Hmnighp-7-uouk-glucuronide, Ur Not Detected ng/mL Normal 43 Morphine, Ur Not Detected ng/mL Normal Cutoff: 25 44 Bcccwsea-3-yjnv-glucuronide, U Not Detected ng/mL Normal 45 6-monoacetylmorphine, Ur Not Detected ng/mL Normal Cutoff: 25 46 Hydrocodone, Ur Not Detected ng/mL Normal Cutoff: 25 47 Norhydrocodone, Ur Not Detected ng/mL Normal Cutoff: 25 48 Dihydrocodeine, Ur Not Detected ng/mL Normal Cutoff: 25 49 Hydromorphone, Ur Not Detected ng/mL Normal Cutoff: 25 50 Eraqjkxiwowgc6bllnhdhfglotjdr Not Detected ng/mL Normal 51 Oxycodone, Ur Not Detected ng/mL Normal Cutoff: 25 52 Noroxycodone, Ur Not Detected ng/mL Normal Cutoff: 25 53 Oxymorphone, Ur Not Detected ng/mL Normal Cutoff: 25 54 Qnsxuqhcmat-6-udxl-glucuronide Not Detected ng/mL Normal 55 Noroxymorphone, Ur Not Detected ng/mL Normal Cutoff: 25 56 Fentanyl, Ur Not Detected ng/mL Normal Cutoff: 2 57 Norfentanyl, Ur Not Detected ng/mL Normal Cutoff: 2 58 Meperidine, Ur Not Detected ng/mL Normal Cutoff: 25 59 Normeperidine, Ur Not Detected ng/mL Normal Cutoff: 25 60 Naloxone, Ur Not Detected ng/mL Normal Cutoff: 25 61 Xpfiupgq-0-hayu-glucuronide, U Not Detected ng/mL Normal 62 Methadone, Ur Not Detected ng/mL Normal Cutoff: 25 63 Eddp, Ur Not Detected ng/mL Normal Cutoff: 25 64 Propoxyphene, Ur Not Detected ng/mL Normal Cutoff: 25 65 Norpropoxyphene, Ur Not Detected ng/mL Normal Cutoff: 25 66 Tramadol, Ur Present ng/mL Normal Cutoff: 25 67 O-desmethyltramadol, Ur Present ng/mL Normal Cutoff: 25 68 Tapentadol, Ur Not Detected ng/mL Normal Cutoff: 25 69 N-desmethyltapentadol, Ur Not Detected ng/mL Normal Cutoff: 50 70 Boyowcqter-yafs-shtmjlqsibm, U Not Detected ng/mL Normal 71 Buprenorphine, Ur Not Detected ng/mL Normal Cutoff: 5 72 Norbuprenorphine, Ur Not Detected ng/mL Normal Cutoff: 5 73 Norbuprenorphine glucuronide Not Detected ng/mL Normal Cutoff: 20 74 Opioid Interpretation See Comment Normal 75 Drug Abuse 01/08/2016 [facility] Urine Amphetamine Negative ng/ mL Normal 76 [address] [place] [address] [phone] Urine Barbiturates Negative ng/mL Normal 77 Urine Benzodiazepines Presumptive Posi <SEE NOTE> Normal 78 ng/mL Urine Cocaine Negative ng/mL Normal 79 Urine Phencyclidine Negative ng/mL Normal Cutoff: 25 Urine Tetrahydrocannabinol Negative ng/mL Normal Cutoff: 50 80 Creatinine 250.6 mg/dL Normal Specific [place] 1.018 Normal pH 6.9 Normal Oxidants Negative Normal 81 Adulterants Comment Normal Normal Codeine, Ur Not Detected ng/mL Normal Cutoff: 25 82 Qjgqxqy-6-vyoh-glucuronide, Ur Not Detected ng/mL Normal 83 Morphine, Ur Not Detected ng/mL Normal Cutoff: 25 84 Evobvpzj-3-tgrz-glucuronide, U Not Detected ng/mL Normal 85 6-monoacetylmorphine, Ur Not Detected ng/mL Normal Cutoff: 25 86 Hydrocodone, Ur Not Detected ng/mL Normal Cutoff: 25 87 Norhydrocodone, Ur Not Detected ng/mL Normal Cutoff: 25 88 Dihydrocodeine, Ur Not Detected ng/mL Normal Cutoff: 25 89 Hydromorphone, Ur Not Detected ng/mL Normal Cutoff: 25 90 Nzvqbspmjwzjw2hmelgnzgqlsdovd Not Detected ng/mL Normal 91 Oxycodone, Ur Not Detected ng/mL Normal Cutoff: 25 92 Noroxycodone, Ur Not Detected ng/mL Normal Cutoff: 25 93 Oxymorphone, Ur Not Detected ng/mL Normal Cutoff: 25 94 Egnqnqfhhpw-6-wcwp-glucuronide Not Detected ng/mL Normal 95 Noroxymorphone, Ur Not Detected ng/mL Normal Cutoff: 25 96 Fentanyl, Ur Not Detected ng/mL Normal Cutoff: 2 97 Norfentanyl, Ur Not Detected ng/mL Normal Cutoff: 2 98 Meperidine, Ur Not Detected ng/mL Normal Cutoff: 25 99 Normeperidine, Ur Not Detected ng/mL Normal Cutoff: 25 100 Naloxone, Ur Not Detected ng/mL Normal Cutoff: 25 101 Dsibvbrg-3-qzmm-glucuronide, U Not Detected ng/mL Normal 102 Methadone, Ur Not Detected ng/mL Normal Cutoff: 25 103 Eddp, Ur Not Detected ng/mL Normal Cutoff: 25 104 Propoxyphene, Ur Not Detected ng/mL Normal Cutoff: 25 105 Norpropoxyphene, Ur Not Detected ng/mL Normal Cutoff: 25 106 Tramadol, Ur Present ng/mL Normal Cutoff: 25 107 O-desmethyltramadol, Ur Present ng/mL Normal Cutoff: 25 108 Tapentadol, Ur Not Detected ng/mL Normal Cutoff: 25 109 N-desmethyltapentadol, Ur Not Detected ng/mL Normal Cutoff: 50 110 Zmwckumnih-vrfe-xjxszpogxuc, U Not Detected ng/mL Normal 111 Buprenorphine, Ur Not Detected ng/mL Normal Cutoff: 5 112 Norbuprenorphine, Ur Not Detected ng/mL Normal Cutoff: 5 113 Norbuprenorphine glucuronide Not Detected ng/mL Normal Cutoff: 20 114 Opioid Interpretation See Comment Normal 115 Liver Function 10/13/2015 [facility] Total Protein 6.5 g/dL Normal 6.4-8.9 Panel [address] [place] [address] [phone] Albumin 4.2 g/dL Normal 3.2-5.2 Globulin 2.3 g/dL Normal 2-4 Albumin/Globulin Ratio 1.8 Normal 1-3 Total Bilirubin 0.60 mg/dL Normal 0.2-1.0 Direct Bilirubin 0.10 mg/dL Normal 0.03-0.18 Indirect Bilirubin 0.5 mg/dL Normal 0.3-1.0 Alkaline Phosphatase 63 U/L Normal 34-104 Alt 19 U/L Normal 7-52 Ast 17 U/L Normal 13-39 Laboratory test 10/13/2015 [facility] Hemoglobin A1c 6.2 % High Less than [address] (Glyco HGB) 6.0 [place] [address] [phone] Glucose 120 mg/dL High 70-100 117 Laboratory 10/13/2015 [facility] TSH (Thyroid 2.19 Normal 0.34 -5.60 test finding [address] Stim Horm) mcIU/[place] [address] [phone] Laboratory 09/19/2015 [facility] Clotest SEE RESULT 118 test finding [address] BEL[address] [place], [place] [id number] [phone] Laboratory 09/19/2015 [facility] Surgical SEE RESULT 119, test finding [address] Pathology BELOW [address] [place], [place] [address] [phone] Comp 07/28/2015 [facility] Sodium 140 mmol/L Normal 133-145 [address] Panel [place], [place] [id number] [phone] Potassium 4.1 mmol/L Normal 3.5-5.0 Chloride 105 mmol/L Normal 101-111 Co2 Carbon Dioxide 29 mmol/L Normal 22-32 Anion Gap 6 mmol/L Normal 2-11 Glucose 113 mg/dL High 70-100 Blood Urea Nitrogen 14 mg/dL Normal 6-24 Creatinine 0.75 mg/dL Normal 0.51-0.95 BUN/Creatinine Ratio 18.7 Normal 8-20 Calcium 9.4 mg/dL Normal 8.6-10.3 Total Protein 6.6 g/dL Normal 6.4-8.9 Albumin 4.3 g/dL Normal 3.2-5.2 Globulin 2.3 g/dL Normal 2-4 Albumin/Globulin Ratio 1.9 Normal 1-3 Total Bilirubin 0.50 mg/dL Normal 0.2-1.0 Alkaline Phosphatase 54 U/L Normal 34-104 Alt 15 U/L Normal 7-52 Ast 15 U/L Normal 13-39 Egfr Non- 78.8 Normal >60 Egfr 101.4 Normal >60 122 Lipid Profile 07/28/2015 [facility] Triglycerides 131 mg/dL Normal 123 (Trig/Chol/HDL) [address] [place] [address] [phone] Cholesterol 273 mg/dL Normal 124 HDL Cholesterol 46.3 mg/dL Normal 125 LDL Cholesterol 201 mg/dL Normal 126 1 SEE RESULT BELOW Name: ELBERT MUELLER : [address]: Jenifer Ferrer MD Acct: [id number] Unit: [id number] AGE: 63 Location: ED Re08/16/18 SEX: F Status: DEP ER SPEC: [id number] IFEANYI: 08/16/[address] [facility] [address]: Jenifer Ferrer MD REQ: [id number] RECD: 08/16/18 STATUS: JAVAD GONZALEZ DR: Katlin Gallegos MD _ SOURCE: URINE SPDESC: ORDERED: Urine Culture Procedure Result Reported Site Urine Culture Final 08/17/18- 1605 ML No Growth (<1,000 CFU/mL) * ML - Main Lab . END OF REPORT DEPARTMENT OF PATHOLOGY, [address] [place] [address] Madhu Feliz M.D. Director [facility] # [id number] 2 *Ascorbic acid is present which may interfere with detection of blood. 3 Because ethnic data is not always readily available, this report includes an eGFR for both -Americans and non- Americans. The National Kidney Disease Education Program (NKDEP) does not endorse the use of the MDRD equation for patients that are not between the ages of 18 and 70, are , have extremes of body size, muscle mass, or nutritional status, or are non- or non-. According to the National Kidney Foundation, irrespective of diagnosis, the stage of the disease is based on the level of kidney function: Stage Description GFR(mL/min/1.73 m(2)) 1 Kidney damage with normal or decreased GFR 90 2 Kidney damage with mild decrease in GFR 60-89 3 Moderate decrease in GFR 30-59 4 Severe decrease in GFR 15-29 5 Kidney failure <15 (or dialysis) 4 Therapeutic target for the treatment of diabetes mellitus patients is <7% HBA1C, and in selective patients <6.0%. Please refer to [place] Diabetes Association diabetic care guidelines for further information. 5 Because ethnic data is not always readily available, this report includes an eGFR for both -Americans and non- Americans. The National Kidney Disease Education Program (NKDEP) does not endorse the use of the MDRD equation for patients that are not between the ages of 18 and 70, are , have extremes of body size, muscle mass, or nutritional status, or are non- or non-. According to the National Kidney Foundation, irrespective of diagnosis, the stage of the disease is based on the level of kidney function: Stage Description GFR(mL/min/1.73 m(2)) 1 Kidney damage with normal or decreased GFR 90 2 Kidney damage with mild decrease in GFR 60-89 3 Moderate decrease in GFR 30-59 4 Severe decrease in GFR 15-29 5 Kidney failure <15 (or dialysis) 6 Desirable: <150 Borderline High: 150-199 High: 200-499 Very High: >500 7 Desirable: <200 Borderline High: 200-239 High: >239 8 Low: <40 Desirable: 40-60 High: >60 9 Desirable: <100 Near Optimal: 100-129 Borderline High: 130-159 High: 160-189 Very High: >189 10 SEE RESULT BELOW Name: ELBERT MUELLER : [address]: Katlin Gallegos MD Acct: [id number] Unit: [id number] AGE: 62 Location: [facility] Re12/17/17 SEX: F Status: REG REF SPEC: [id number] IFEANYI: 12/17/17-[address]: Katlin Gallegos MD REQ: [id number] RECD: 12/17/17 STATUS: SOUT _ ORDERED: TP IMAGE ANALYS, HPV/Thin Prep, HPV 16/18 GENE COMMENTS: [id number] Negative for Intraepithelial lesion or Malignancy Date Time Test Result Flag (u) Normal Range 12/17/17 1350 @ HPV RNA RFLX GE Negative Negative @ @ The high-risk HPV types detected by the assay include: 16, @ 18, 31, 33, 35, 39, 45, 51, 52, 56, 58, 59, 66, and 68. A. Ectocervical/Endocervical Specimen Adequacy: Satisfactory of evaluation Transformation zone component cannot be definitely identified due to presence of atrophy or other hormonal changes Patient Information: HPV: High risk HPV RNA testing regardless of pap results. HPV 16/18 Genotype Reflex Actual Specimen Date: 12/17/17 Post Menopausal?: Y Signed by and Reported on: SULEMA Enciso(ASCP) 2187 This Pap test was evaluated with the assistance of the [employer]em[employer] Test Imaging System. Due to cytologic findings at the management retail intern microscope, comprehensive manual rescreening by a [facility] Director may be required. The Pap Smear is a screening test designed to aid in the detection of premalignant and malignant conditions of the uterine cervix. It is not a diagnostic procedure and should not be used as the sole means of detecting cervical cancer. Both false- positive and false- negative reports do occur. Depending on your risk status, a Pap smear should be obtained and evaluated every 1-3 years. END OF REPORT DEPARTMENT OF PATHOLOGY, [address] [place] [address] Madhu Feliz M.D. Director [facility] # [id number] 11 [id number] 12 SEE RESULT BELOW Name: ELBERT MUELLER : [address]: Albina Saeed MD Acct: [id number] Unit: [id number] AGE: 61 Location: [facility] Re05/02/17 SEX: F Status: REG REF SPEC: [id number] IFEANYI: 05/02/17- SUBM DR: Albina Saeed MD REQ: [id number] RECD: 05/02/17 STATUS: CORAL GONZALEZ DR: Katlin Gallegos MD _ ORDERED: LEVEL 4 COMMENTS: [id number] FINAL DIAGNOSIS Skin, right posterior shoulder, biopsy: -- Verrucous seborrheic keratosis, irritated and inflamed. PRE-OPERATIVE DIAGNOSIS Erythematous papule with hyperkeratotic scale; squamous cell carcinoma GROSS DESCRIPTION The specimen is received in formalin labeled, Right Posterior Shoulder, and consists of a 0.8 x 0.8 by up to 0.4 cm xama-qqdva-shre spiculated to papilliferous nodular skin fragment, which is inked, trisected and entirely submitted in one cassette. Signed (signature on file) Karime Martinez MD 0943 END OF REPORT * ML = Testing performed at Main Lab DEPARTMENT OF PATHOLOGY, [address] [place] [address] Madhu Feliz M.D. Director [facility] # [id number] 13 Desirable: <150 Borderline High: 150-199 High: 200-499 Very High: >500 14 Desirable: <200 Borderline High: 200-239 High: >239 15 Low: <40 Desirable: 40-60 High: >60 16 Desirable: <100 Near Optimal: 100-129 Borderline High: 130-159 High: 160-189 Very High: >189 17 Therapeutic target for the treatment of diabetes mellitus patients is <7% HBA1C, and in selective patients <6.0%. Please refer to [place] Diabetes Association diabetic care guidelines for further information. 18 Because ethnic data is not always readily available, this report includes an eGFR for both -Americans and non- Americans. The National Kidney Disease Education Program (NKDEP) does not endorse the use of the MDRD equation for patients that are not between the ages of 18 and 70, are , have extremes of body size, muscle mass, or nutritional status, or are non- or non-. According to the National Kidney Foundation, irrespective of diagnosis, the stage of the disease is based on the level of kidney function: Stage Description GFR(mL/min/1.73 m(2)) 1 Kidney damage with normal or decreased GFR 90 2 Kidney damage with mild decrease in GFR 60-89 3 Moderate decrease in GFR 30-59 4 Severe decrease in GFR 15-29 5 Kidney failure <15 (or dialysis) 19 FASTING 10 HOUR 20 Therapeutic target for the treatment of diabetes Mellitus patients is <7% HBA1C, and in selective patients <6.0%.Please refer to [place] Diabetes Association Diabetic care guidelines for further information. 21 FASTING 10 HOUR 22 Because ethnic data is not always readily available, this report includes an eGFR for both -Americans and non- Americans. The National Kidney Disease Education Program (NKDEP) does not endorse the use of the MDRD equation for patients that are not between the ages of 18 and 70, are , have extremes of body size, muscle mass, or nutritional status, or are non- or non-. According to the National Kidney Foundation, irrespective of diagnosis, the stage of the disease is based on the level of kidney function: Stage Description GFR(mL/min/1.73 m(2)) 1 Kidney damage with normal or decreased GFR 90 2 Kidney damage with mild decrease in GFR 60-89 3 Moderate decrease in GFR 30-59 4 Severe decrease in GFR 15-29 5 Kidney failure <15 (or dialysis) 23 Desirable <150 Borderline high 150-199 High 200-499 Very High >500 24 Desirable <200 Borderline high 200-239 High >239 25 Low <40 Desirable: 40-60 High: >60 26 Desirable: <100 mg/dL Near Optimal: 100-129 mg/dL Borderline High: 130-159 mg/dL High: 160-189 mg/dL Very High: >189 mg/dL 27 REFERENCE VALUE Cutoff: 100 28 REFERENCE VALUE Cutoff: 100 29 REFERENCE VALUE Cutoff: 100 30 REFERENCE VALUE Cutoff: 100 31 REFERENCE VALUE Cutoff: 100 32 REFERENCE VALUE Cutoff: 100 33 REFERENCE VALUE Cutoff: 100 34 REFERENCE VALUE Cutoff: 100 35 Positive. 7-NH Flunitrazipam testing performed at a x2 dilution; limit of quantitation is elevated. ADDITIONAL INFORMATION This report is intended for use in clinical monitoring and management of patients. It is not intended for use in employment-related testing. Test Performed by: [facility] [address] [address] Fish Icer: Nabil Patel II, M.D., Ph.D. 36 REFERENCE VALUE Cutoff: 500 37 REFERENCE VALUE Cutoff: 200 38 Presumptive Positive Drug confirmation to follow. Presumptive Positive means that the screening method is positive, but the test needs to be run by a confirmatory method before being finalized. REFERENCE VALUE Cutoff: 100 39 REFERENCE VALUE Cutoff: 150 40 ADDITIONAL INFORMATION This report is intended for use in clinical monitoring or management of patients. It is not intended for use in employment-related testing. 41 REFERENCE VALUE Cutoff: 200 mg/L 42 Tylenol 3 43 Metabolite of codeine REFERENCE VALUE Cutoff: 100 44 Rima Marks, MS Contin; Also a minor metabolite (10%) of codeine and can be seen in low concentrations (<2,000 ng/mL) with poppy seed ingestion. 45 Metabolite of morphine REFERENCE VALUE Cutoff: 100 46 Metabolite of heroin 47 Lortab, Belle, Vicodin; Also a very minor metabolite of codeine and impurity (<1%) of oxycodone. 48 Metabolite of hydrocodone 49 Metabolite of hydrocodone 50 Dilaudid, Exalgo; Also a metabolite of hydrocodone and a minor (<5%) metabolite of morphine. 51 Metabolite of hydromorphone REFERENCE VALUE Cutoff: 100 52 Endocet, Percocet, Oxycontin 53 Metabolite of oxycodone 54 Numorphan, Opana; Also a metabolite of oxycodone. 55 Metabolite of oxymorphone REFERENCE VALUE Cutoff: 100 56 Metabolite of oxymorphone 57 Actiq, Duragesic, Fentora 58 Metabolite of fentanyl 59 Demerol 60 Metabolite of meperidine 61 Narcan 62 Metabolite of naloxone REFERENCE VALUE Cutoff: 100 63 Dolophine 64 Metabolite of methadone 65 Darvon, Darvocet 66 Metabolite of propoxyphene 67 Tradol, Ultram, Ultracet 68 Metabolite of tramadol 69 Nucynta 70 Metabolite of tapentadol 71 Metabolite of tapentadol REFERENCE VALUE Cutoff: 100 72 Buprenex, Suboxone 73 Metabolite of buprenorphine 74 Metabolite of buprenorphine 75 Test detected the presence of tramadol and its metabolite (O-desmethyltramadol). Suspect use of tramadol within the past three days. ADDITIONAL INFORMATION This test was developed and its performance characteristics determined by [facility] in a manner consistent with CLIA requirements. This test has not been cleared or approved by the U.S. Food and Drug Administration. PDF Report available at: https://Vivonet.Pressly/[email or web address]- [email or web address].ashx Test Performed by: [facility] - [address] [address] Fish Icer: Nabil Patel II, M.D., Ph.D. 76 REFERENCE VALUE Cutoff: 500 77 REFERENCE VALUE Cutoff: 200 78 Presumptive Positive Drug confirmation to follow. Presumptive Positive means that the screening method is positive, but the test needs to be run by a confirmatory method before being finalized. REFERENCE VALUE Cutoff: 100 79 REFERENCE VALUE Cutoff: 150 80 ADDITIONAL INFORMATION This report is intended for use in clinical monitoring or management of patients. It is not intended for use in employment-related testing. 81 REFERENCE VALUE Cutoff: 200 mg/L 82 Tylenol 3 83 Metabolite of codeine REFERENCE VALUE Cutoff: 100 84 Rima Marks, MS Contin; Also a minor metabolite (10%) of codeine and can be seen in low concentrations (<2,000 ng/mL) with poppy seed ingestion. 85 Metabolite of morphine REFERENCE VALUE Cutoff: 100 86 Metabolite of heroin 87 Lortab, Belle, Vicodin; Also a very minor metabolite of codeine and impurity (<1%) of oxycodone. 88 Metabolite of hydrocodone 89 Metabolite of hydrocodone 90 Dilaudid, Exalgo; Also a metabolite of hydrocodone and a minor (<5%) metabolite of morphine. 91 Metabolite of hydromorphone REFERENCE VALUE Cutoff: 100 92 Endocet, Percocet, Oxycontin 93 Metabolite of oxycodone 94 Numorphan, Opana; Also a metabolite of oxycodone. 95 Metabolite of oxymorphone REFERENCE VALUE Cutoff: 100 96 Metabolite of oxymorphone 97 Actiq, Duragesic, Fentora 98 Metabolite of fentanyl 99 Demerol 10 Metabolite of meperidine 0 10 Narcan 1 10 Metabolite of naloxone 2 REFERENCE VALUE Cutoff: 100 10 Dolophine 3 10 Metabolite of methadone 4 10 Darvon, Darvocet 5 10 Metabolite of propoxyphene 6 10 Tradol, Ultram, Ultracet 7 10 Metabolite of tramadol 8 10 Nucynta 9 11 Metabolite of tapentadol 0 11 Metabolite of tapentadol 1 REFERENCE VALUE Cutoff: 100 11 Buprenex, Suboxone 2 11 Metabolite of buprenorphine 3 11 Metabolite of buprenorphine 4 11 Test detected the presence of tramadol and its metabolite 5 (O-desmethyltramadol). Suspect use of tramadol within the past three days. ADDITIONAL INFORMATION This test was developed and its performance characteristics determined by [facility] in a manner consistent with CLIA requirements. This test has not been cleared or approved by the U.S. Food and Drug Administration. PDF Report available at: https://Vivonet.Pressly/Reports/[email or web address]- [email or web address].ashx Test Performed by: [place] [address] Fish Icer: Nabil Patel II, M.D., Ph.D. 11 Therapeutic target for the treatment of diabetes 6 Mellitus patients is <7% HBA1C, and in selective patients <6.0%.Please refer to [place] Diabetes Association Diabetic care guidelines for further information. 11 FASTING 10 HOUR 7 11 SEE RESULT BELOW 8 Name: ELBERT MUELLER : [address]: Andre Cardenas MD Acct: [id number] Unit: [id number] AGE: 60 Location: [facility] Re09/19/15 SEX: F Status: REG REF SPEC: [id number] IFEANYI: 09/19/15-[address] [facility] [address]: Andre Cardenas MD REQ: [id number] RECD: 09/19/15 STATUS: JAVAD GONZALEZ DR: Katlin Gallegos MD _ SOURCE[facility]: ORDERED: Clotest Procedure Result Reported Site Clotest Final 09/20/15835 ML Clotest Negative * ML - MAIN LAB ([facility]) . END OF REPORT * ML = Testing performed at Main Lab DEPARTMENT OF PATHOLOGY, [address] [place] [address] Madhu Feliz M.D. Director [facility] # [id number] 11 [id number] 12 SEE RESULT BELOW 0 Name: ELBERT MUELLER : [address]: Andre Cardenas MD Acct: [id number] Unit: [id number] AGE: 60 Location: [facility] Re09/19/15 SEX: F Status: REG REF SPEC: [id number] IFEANYI: 09/19/15-12[address] [facility] [address]: Andre Cardenas MD REQ: [id number] RECD: 09/19/15-1615 STATUS: CORAL GONZALEZ DR: Katlin Gallegos MD _ ORDERED: LEVEL IV/2 COMMENTS: [id number] FINAL DIAGNOSIS 1. Gastroesophageal junction, biopsy: -- Squamous and columnar mucosa with chronic inflammation. -- Negative for intestinal metaplasia and dysplasia. 2. Colon, at 10 cm, biopsy: -- Hyperplastic polyp. POST-OPERATIVE DIAGNOSIS Esophagus - mild esophagitis, Stomach - mild gastritis, Duodenum - normal. Colonoscopy - removal of two polyps - ten years. Diverticulosis. GROSS DESCRIPTION 1. The specimen is received in formalin labeled, Biopsy EG Junction, and consists of a 0.7 by up to 0.3 x 0.1 cm howell-white irregular to polypoid soft tissue fragment, which is entirely submitted in one cassette. 2. The specimen is received in formalin labeled, Biopsy Colon Polyps at 10 cm, and consists of two howell-white irregular to polypoid soft tissue fragments measuring 0.3 x 0.2 x 0.1 cm and 0.3 x 0.2 x 0.2 cm, which are entirely submitted in one cassette. Signed (signature on file) Karime Martinez MD 08/30 1701 END OF REPORT * ML = Testing performed at Main Lab DEPARTMENT OF PATHOLOGY, [address] [place] [address] Madhu Feliz M.D. Director [facility] # [id number] 12 PT IS FASTING 1 12 Because ethnic data is not always readily available, 2 this report includes an eGFR for both -Americans and non- Americans. The National Kidney Disease Education Program (NKDEP) does not endorse the use of the MDRD equation for patients that are not between the ages of 18 and 70, are , have extremes of body size, muscle mass, or nutritional status, or are non- or non-. According to the National Kidney Foundation, irrespective of diagnosis, the stage of the disease is based on the level of kidney function: Stage Description GFR(mL/min/1.73 m(2)) 1 Kidney damage with normal or decreased GFR 90 2 Kidney damage with mild decrease in GFR 60-89 3 Moderate decrease in GFR 30-59 4 Severe decrease in GFR 15-29 5 Kidney failure <15 (or dialysis) 12 Desirable <150 3 Borderline high 150-199 High 200-499 Very High >500 12 Desirable <200 4 Borderline high 200-239 High >239 12 Low <40 5 Desirable: 40-60 High: >60 12 Desirable: <100 mg/dL 6 Near Optimal: 100-129 mg/dL Borderline High: 130-159 mg/dL High: 160-189 mg/dL Very High: >189 mg/dL Procedures Date Code Description Status 01/13/2018 849454099 Bone Mineral Density Test Completed 01/13/2018 53850113 Mammogram Completed 06/19/2016 625943259 Bone Mineral Density Test Completed 06/19/2016 69470054 Mammogram Completed 09/19/2015 81375010 Colonoscopy Completed 08/07/2015 08167 Pulmonary Function><Bronchodil Completed 02/09/2013 79020 EKG, Interpretation Only Completed 06/02/2012 60900 Color Flow Doppler/Interp & Reprt Completed 06/02/2012 90126 Pulse Wave/Continuous-Interp.RPT Completed 06/02/2012 78402 ECHO Transthorasic Realtime 2D W Doppler & Color Flow Completed Hosp 06/02/2012 95604 EKG, Interpretation Only Completed 06/01/2012 05229 EKG, Interpretation Only Completed Encounters Type Date Location Provider Dx Diagnosis Office Visit 08/19/2018 [facility] Elke Quintero, R10.30 Lower abdominal 2:00p [facility] CREDIT CONTROL MANAGER-Cde pain, unspecified R63.4 Abnormal weight loss R11.10 Vomiting, unspecified Office Visit 05/06/2018 2:00p [facility] Internal Medicine - LALO Crooks R05 Cough Suite R R09.81 Nasal congestion Office Visit 12/17/2017 Krista [facility] Internal [place] Z01.411 Encntr for director operating 1:00p Kranthi Gallegos M.D. exam (general) (routine) w abnormal findings N84.1 Polyp of cervix uteri R73.01 Impaired fasting glucose E78.2 Mixed hyperlipidemia M85.89 Oth disrd of bone density and structure, multiple sites M54.2 Cervicalgia Z23 Encounter for immunization Z12.31 Encntr screen mammogram for malignant neoplasm of breast M43.02 Spondylolysis, cervical region Office 06/20/2016 Krista [facility] Internal [place] E78.2 Mixed Visit 11:50a Kranthi Gallegos M.D. hyperlipidemia R73.01 Impaired fasting glucose Z11.59 Encounter for screening for other viral diseases Office Visit 04/17/2016 1:00p [facility] Internal Emil Canseco, J20.9 Acute bronchitis, Medicine - Suite HEALTH AND WELLNESS MANAGER unspecified R J44.0 Chr obstructive pulmon disease with (acute) lower resp infct Office Visit 01/08/2016 DoNotUse [facility] Internal [place] Z00.00 Encntr for 11:10a Medicine-Yanely Gallegos M.D. general adult medical exam w/o abnormal findings I10 Essential (primary) hypertension G47.30 Sleep apnea, unspecified M54.17 Radiculopathy, lumbosacral region M79.672 Pain in left foot Z13.820 Encounter for screening for osteoporosis H61.23 Impacted cerumen, bilateral E78.2 Mixed hyperlipidemia Z11.59 Encounter for screening for other viral diseases Z12.31 Encntr screen mammogram for malignant neoplasm of breast N64.4 Mastodynia Office Visit 10/11/2015 11:50a [facility] Internal [place] Gallegos, K29.00 Acute gastritis Elizabeth Siegel M.D. 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 knee Office Visit 08/30/2015 [facility] Internal [place] R73.01 Impaired fasting 1:40p Elizabeth Gallegos M.D. glucose K76.0 Fatty (change of) liver, not elsewhere classified E78.0 Pure hypercholesterolemia Office Visit 08/25/2015 Neurosurgery Christel Opal, M54.16 Radiculopathy, 11:00a [facility] PA-C lumbar region M47.812 Spondylosis w/o myelopathy or radiculopathy, cervical region Office Visit 07/26/2015 2:20p [facility] Internal [place] E78.2 Mixed hyperlipidemia Elizabeth Gallegos M.D. Ccmob Z12.11 Encounter for screening for malignant neoplasm of colon J44.9 Chronic obstructive pulmonary disease, unspecified K21.9 Gastro-esophageal reflux disease without esophagitis M47.892 Other spondylosis, cervical region M51.36 Other intervertebral disc degeneration, lumbar region T85.41xA Breakdown of breast prosthesis and implant, init Office Visit 12/19/2012 4:30p [facility] 291.81 Alcoholic Assoc,pc Larry, N.P. Withdrawal Hospitalists 276.8 Hypopotassemia Office Visit 12/18/2012 4:20p [facility] 291.81 Alcoholic Assoc,dusty Juarez N.Maik Withdrawal Hospitalists 276.8 Hypopotassemia Office Visit 12/17/2012 4:20p [facility] Jose Antonio 291.81 Alcoholic Assoc,dusty Juarez N.PShawn Withdrawal Hospitalists 276.8 Hypopotassemia [facility].81 Al[facility]olic 4:20p Assdusty ramírez M.D. Withdrawal Hospitalists 276.8 Hypopotassemia Office Visit 06/03/2012 8:09a [facility] 291.81 Alcoholic Assoc,dusty Kingsley M.D. Withdrawal Hospitalists 786.52 Painful Respiration 807.00 FX Rib(S) Closed Unspec Office Visit 06/02[facility]2012 [facility] 291.[facility] Alcoholic Assdesiree,dusty Kingsley M.D. Withdraw[facility] Hospitalists 275.42 Hypercalcemia 786.52 Painful Respiration Office Visit 06/01/2012 [facility] Keren Kelleyhn, 291.81 Alcoholic 8:08a dusty Rios M.D. Withdraw[facility] Hospitalists 786.52 Painful Respiration 275.42 Hypercalcemia 276.8 Hypopotassemia Plan of Treatment Future Appointment(s):11/09/2018 1:00 pm - Katlin Gallegos M.D. at [facility] - Katlin Gallegos M.D.F10.188 Alcohol abuse with other alcohol-induced disorderComments:encourage you to stop drinking completely as it is affecting you negatively emotionally and physicallyReferral: [facility], Clinic/CenterFollow up:1 weekI10 Essential (primary) hypertensionComments:Increase Amlodipine to 10 mg dailyFollow up:1 weekR30.0 Dysuria
== END 2018-11-16 21:56 | disposition left against medical advice (07) ==
LOC: ED 20:55
DX: F10.10 Alcohol abuse, uncomplicated (principal); R25.2 Cramp and spasm; E78.00 Pure hypercholesterolemia, unspecified; I10 Essential (primary) hypertension; J44.9 Chronic obstructive pulmonary disease, unspecified; F41.9 Anxiety disorder, unspecified; F32.9 Major depressive disorder, single episode, unspecified; Z87.891 Personal history of nicotine dependence; Z88.8 Allergy status to other drugs, medicaments and biological substances; Z79.899 Other long term (current) drug therapy
CPT/HCPCS: 36415; 80053; 83735; 85025; 85610; 96374; 99282; J2765

== ENCOUNTER 2018-11-24 17:42 | Emergency (ER) | payer MEDICARE ==
[2018-11-24] MEDS ORDERED: NS 0.9% 1000 ML** 1,000 ML IV ONE (19:24)
[2018-11-24] MEDS ORDERED: Thiamine INJ* 100 MG, Folic Acid IV* 1 MG, Multiple Vitamin IV ADULT* 10 ML in NS 0.9% ... IV ONE (19:25)
[2018-11-24] MEDS ORDERED: Ondansetron INJ* 2 MG/ML VIAL IV ONE (19:36)
[2018-11-24 19:49] LABS: ALT 159 U/L (7-52); AST 103 U/L (13-39); Albumin 4.6 g/dL (3.2-5.2); Albumin/Globulin Ratio 1.7 (1-3); Alkaline Phosphatase 78 U/L (34-104); Anion Gap 10 mmol/L (2-11); BUN/Creatinine Ratio 34.8 (8-20); Blood Urea Nitrogen 23 mg/dL (6-24); CO2 Carbon Dioxide 29 mmol/L (22-32); Chloride 94 mmol/L (101-111); EGFR African American 109.4 (>60); EGFR Non-African American 90.5 (>60); Globulin 2.7 g/dL (2-4); Glucose 162 mg/dL (70-100); Potassium 3.2 mmol/L (3.5-5.0); Sodium 133 mmol/L (135-145); Total Protein 7.3 g/dL (6.4-8.9)
[2018-11-24 20:02] LABS: Urine Appearance Clear; Urine Color Yellow
[2018-11-24 20:04] LABS: Urine Specific Gravity 1.025 (1.010-1.030)
[2018-11-24 20:05] LABS: Urine Bilirubin 2+ (Negative); Urine Blood Negative (Negative); Urine Glucose Negative (Negative); Urine Ketones Negative (Negative); Urine Nitrite Negative (Negative); Urine Protein Negative (Negative); Urine Urobilinogen Negative (Negative)
[2018-11-24 20:10] LABS: Urine Bacteria 1+ (Absent); Urine Squamous Epithelial Cell Present (Absent); Urine White Blood Cell 1+(6-10/hpf) (Absent)
[2018-11-24 20:13] LABS: Acetaminophen < 15 mcg/mL; Alcohol 15 mg/dL (<10); Salicylate < 2.50 mg/dL (<30)
--- NOTE | 2018-11-24 20:13 | ED ---
Substance Abuse/Use - HPI Summary HPI Summary: 63 y/o F alcoholic presents to [facility] for detox. She states that she attempted to quit consuming alcohol by herself over the past few days but has experienced N/V. She states that she has been drinking Gatorade with no relief in Sx. Patient denies recent seizures but endorses experiencing tremors today and Hx of withdrawal seizures is reported. Patient states that she took 3 shots of vodka today, 11/24/18, to see if this would help with Sx. She states that she was evaluated by her PCP today and subsequently came to ED for detox. PMHx of high liver enzymes is reported. Patient endorses some diffuse abdominal tenderness and RLQ tenderness in particular. She additionally states that she has a diffuse burning/pruritic sensation, particularly at her arms. Patient denies back pain, chest pain, cough, SOB, LOC. She reports no vomiting today but also notes that she has not had any food today. 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 Patient has been compliant with her medications. Home Medications Budesonide/Formote 160/4.5(NF) [Symbicort 160/4.5 (NF)] 1 puff INH BID 11/24/18 [History Confirmed 11/24/18] Ibuprofen TAB* [Motrin TAB* 400 MG] 800 mg PO Q6H PRN 11/24/18 [History Confirmed 11/24/18] amLODIPine TAB* [Norvasc 5 mg TAB*] 5 mg PO DAILY 11/24/18 [History Confirmed ] - History Of Current Complaint Chief Complaint: EDDetoxRequest Stated Complaint: DETOX PER PT Time Seen by Provider: 11/24/18 19:26 Hx Obtained From: Patient Ingestion History: Type/Name Of Drug - alcohol, Amount Ingested - 3 vodka shots , Approximate Time Of Ingestion - 1500 Overdose Characteristics: Oral Timing Of Abuse: Recent Cessation For A Period Of - a few days Aggravating Factor(s): Nothing Alleviating Factor(s): Nothing Associated Signs And Symptoms: Delirium Tremors, Nausea, Vomiting, Other: - negative - back pain, chest pain, SOB, cough, LOC, food today; positive - abdominal tenderness, diffuse, pruritic/burning sensation, predominantly at her arms - Allergies/Home Medications Allergies/Adverse Reactions: Allergies Allergy/AdvReac Type Severity Reaction Status Date / Time ipratropium AdvReac See Comment Verified 11/16/18 21:02 Home Medications: Home Medications Budesonide/Formote 160/4.5(NF) [Symbicort 160/4.5 (NF)] 1 puff INH BID 11/24/18 [History Confirmed 11/24/18] Ibuprofen TAB* [Motrin TAB* 400 MG] 800 mg PO Q6H PRN 11/24/18 [History Confirmed 11/24/18] amLODIPine TAB* [Norvasc 5 mg TAB*] 5 mg PO DAILY 11/24/18 [History Confirmed ] PMH/Surg Hx/FS Hx/Imm Hx Endocrine/Hematology History: Denies: Hx Anticoagulant Therapy, Hx Diabetes, Hx Thyroid Disease Cardiovascular History: Reports: Hx Hypercholesterolemia, Hx Hypertension Denies: Hx Pacemaker/ICD Respiratory History: Reports: Hx Chronic Obstructive Pulmonary Disease (COPD), Hx Pneumonia, Other Respiratory Problems/Disorders - Hx of pneumonia Denies: Hx Asthma GI History: Reports: Hx Diverticulosis - diverticulitis , Other GI Disorders - colon resection diviticulitis Denies: Hx Ulcer History: Reports: Other Problems/Disorders - uti Denies: Hx Renal Disease Musculoskeletal History: Reports: Hx Back Problems - neck djd Denies: Hx Osteoporosis Sensory History: Reports: Hx Contacts or Glasses Denies: Hx Hearing Aid Opthamlomology History: Reports: Hx Contacts or Glasses Neurological History: Reports: Hx Seizures - during etoh withdrawal Psychiatric History: Reports: Hx Anxiety, Hx Depression, Hx Panic Disorder, Hx Substance Abuse - ETOH Denies: Hx Eating Disorder, Hx of Violent Episodes Against Others - Cancer History Hx Chemotherapy: No Hx Radiation Therapy: No - Surgical History Surgery Procedure, Year, and Place: BILATERAL breast augmentation, appendectomy , colon resection, BILATERAL KNEE meniscus REPAIR, tonsils, CHOLECYSTECTOMY Hx Anesthesia Reactions: No - Immunization History Date of Tetanus Vaccine: Unknown Infectious Disease History: No Infectious Disease History: Denies: Hx Clostridium Difficile, Hx Hepatitis, Hx Human Immunodeficiency Virus (HIV), Hx of Known/Suspected MRSA, Hx Shingles, Hx Tuberculosis, Hx Known/ Suspected VRE, Hx Known/Suspected VRSA, History Other Infectious Disease, Traveled Outside the [place] in Last 30 Days - Family History Known Family History: Positive: Cardiac Disease, Other - FMHx of cancer - Social History Alcohol Use: Daily Alcohol Amount: 1/5 vodka daily, last drink 3 shots today at 1700 Hx Substance Use: Yes Substance Use Type: Reports: None Hx Tobacco Use: Yes Smoking Status (MU): Former Smoker Length of Time of Smoking/Using Tobacco: 1 year Review of Systems Constitutional: Other - positive - tremors, alcohol ingestion Negative: Chest Pain Negative: Shortness Of Breath, Cough Gastrointestinal: Other - abdominal tenderness endorsed; no food ingestion today Positive: Vomiting, Nausea Musculoskeletal: Other - negative - back pain Skin: Other - diffuse, pruritic/burning sensation, predominantly at her arms Neurological: Other - negative - LOC All Other Systems Reviewed And Are Negative: Yes Physical Exam - Summary Physical Exam Summary: General: Well-developed, Well-nourished Female. No acute distress. HEENT: Normocephalic, Atraumatic. Eyes: Conjuctiva normal, PERRL. Ears: TMs within normal limits. Nares: (-) discharge, (-) erythema. Oropharynx: Clear, mucous membranes moist, (-) exudates. Neck: Soft, FROM, (-) lymphadenopathy, (-) thyromegaly, (-) JVD. Cardiovascular: Normal sinus rhythm, (-) murmur. Lungs: Clear to auscultation bilaterally (-) wheezes, (-) rales, (-) rhonchi. Abdomen: Soft, diffuse tenderness, particularly at RLQ, non-distended, (-) organomegaly, normal bowel sounds. Back: (-) CVA tenderness Extremities: No edema. Skin: Warm, dry, (-) rash. Neuro: Alert and oriented x3, no focal deficits. Psychiatric: Mood normal, affect normal. Triage Information Reviewed: Yes Vital Signs On Initial Exam: Initial Vitals Temp Pulse Resp BP Pulse Ox 98.6 F 98 20 167/84 93 11/24/18 17:44 11/24/18 17:44 11/24/18 17:44 11/24/18 17:44 11/24/18 17:44 Vital Signs Reviewed: Yes Diagnostics - Vital Signs Vital Signs Temp Pulse Resp BP Pulse Ox 11/24/18 17:44 98.6 F 98 20 167/84 93 - Laboratory Lab Results: Lab Results 11/24/18 11/24/18 Range/Units 19:24 19:24 Sodium 133 L (135-145) mmol/L Potassium 3.2 L (3.5-5.0) mmol/L Chloride 94 L (101-111) mmol/L Carbon Dioxide 29 (22-32) mmol/L Anion Gap 10 (2-11) mmol/L BUN 23 (6-24) mg/dL Creatinine 0.66 (0.51-0.95) mg/dL Est GFR ( Amer) 109.4 (>60) Est GFR (Non-Af Amer) 90.5 (>60) BUN/Creatinine Ratio 34.8 H (8-20) Glucose 162 H (70-100) mg/dL Lactic Acid 2.2 H* (0.5-2.0) mmol/L Calcium 10.0 (8.6-10.3) mg/dL Total Bilirubin 1.20 H (0.2-1.0) mg/dL AST 103 H (13-39) U/L ALT 159 H (7-52) U/L Alkaline Phosphatase 78 (34-104) U/L Total Protein 7.3 (6.4-8.9) g/dL Albumin 4.6 (3.2-5.2) g/dL Globulin 2.7 (2-4) g/dL Albumin/Globulin Ratio 1.7 (1-3) TSH Pending Salicylates Pending Acetaminophen Pending Serum Alcohol Pending Result Diagrams: 11/24/18 19:24 11/24/18 19:24 Lab Statement: Any lab studies that have been ordered have been reviewed, and results considered in the medical decision making process. - CT CT ABD/PEL CT Interpretation Completed By: Radiologist Summary of CT Findings: IMPRESSION: 1. Stable moderate hiatal hernia. 2. Stable diffuse fatty liver and hepatomegaly. 3. Stable mild extrahepatic biliary dilation with no visible. choledocholithiasis. 4. Stable punctate nonobstructive right nephrolithiasis. 5. Stable colonic diverticulosis without evidence for acute diverticulitis. THIS REPORT WAS REVIEWED BY DR. SMITH. Re-Evaluation - Re-Evaluation First Eval Re-Evaluation Time: 22:38 Comment: Patient is tremulous, anxious, and tachycardic, ativan to be administered. Course/Dx - Course Course Of Treatment: 63 y/o F alcoholic presents to [facility] for detox. She states that she attempted to quit consuming alcohol by herself over the past few days but has experienced N/V. She states that she has been drinking Gatorade with no relief in Sx. Patient denies recent seizures but endorses experiencing tremors today and Hx of withdrawal seizures is reported. Patient states that she took 3 shots of vodka today, 11/24/18, to see if this would help with Sx. She states that she was evaluated by her PCP today and subsequently came to ED for detox. PMHx of high liver enzymes is reported. Patient endorses some diffuse abdominal tenderness and RLQ tenderness in particular. She additionally states that she has a diffuse burning/pruritic sensation, particularly at her arms. Patient denies back pain, chest pain, cough, SOB, LOC. She reports no vomiting today but also notes that she has not had any food today. On physical exam, diffuse abdominal tenderness and RLQ tenderness in particular. Bloodwork was obtained. Serum alcohol was 15. Abnormal values include MCH 33, Plt count 88, sodium 133, potassium 3.2, chloride 94, BUN/creatinine ratio 34.8, glucose 162, lactic acid 2.2, total bilirubin 1.2, AST 103, ALT 159. UA showed 2+ bilirubin, 3+ leukocyte esterase, 1+ WBC and bacteria, and squamous epith cells present. During ED course, patient received [id number] mg/folic acid 1 mg/multivitamins 10 ml in sodium chloride, 1011.2 mls @ 1000 mls/hr, 1 L NS, Zofran 4 mg, Ativan [address] ABD/PEL IMPRESSION: 1. Stable moderate hiatal hernia. 2. Stable diffuse fatty liver and hepatomegaly. 3. Stable mild extrahepatic biliary dilation with no visible. choledocholithiasis. 4. Stable punctate nonobstructive right nephrolithiasis. 5. Stable colonic diverticulosis without evidence for acute diverticulitis. Patient was discharged to home and will follow up with PCP. - Diagnoses Provider Diagnoses: Nausea vomiting and diarrhea Discharge ED - Sign-Out/Discharge Documenting (check all that apply): Patient Departure - discharge Patient Received Moderate/Deep Sedation with Procedure: No - Discharge Plan Condition: Fair Disposition: HOME Patient Education Materials: Acute Nausea and Vomiting (ED), Acute Diarrhea (ED ), Alcohol Withdrawal (ED) Referrals: Katlin Gallegos MD [Primary Care Provider] - Additional Instructions: Drink clear fluids and progress as tolerated. Follow up for alcohol rehab. Return if worsening symptoms, seizures, progressive N/V - Billing Disposition and Condition Condition: FAIR Disposition: Home - Attestation Statements Document Initiated by Sushila: Yes Documenting Scribe: LION VARGAS Provider For Whom Brettibe is Documenting (Include Credential): PIPER SMITH MD Scribe Attestation: ILION, scribed for PIPER SMITH MD on 11/25/18 at 0505. Scribe Documentation Reviewed: Yes Provider Attestation: The documentation as recorded by the LION odonnell accurately reflects the service I personally performed and the decisions made by me, PIPER SMITH MD Status of Scribe Document: Viewed
[2018-11-24 20:26] LABS: TSH (Thyroid Stimulating Horm) 4.18 mcIU/mL (0.34-5.60)
[2018-11-24 20:33] LABS: ABS Monocytes 0.8 10^3/ul (0-0.8); ABS Neutrophils 4.8 10^3/ul (1.5-7.7); Eosinophil % 0.5 %; Hematocrit 45 % (35-47); Hemoglobin 15.4 g/dL (12.0-16.0); Lymphocyte % 15.6 %; Mean Corpuscular HGB Conc 34 g/dL (31-36); Mean Corpuscular Hemoglobin 33 pg (27-31); Mean Corpuscular Volume 97 fL (80-97); Nucleated Red Blood Cells % 0.1; Red Blood Count 4.66 10^6 /uL (3.70-4.87); Red Cell Distribution Width 14 % (10-15); White Blood Count 6.7 10^3/uL (3.5-10.8)
[2018-11-24 21:56] LABS: Mean Platelet Volume 9.5 fL (7.4-10.4); Platelet Count 88 10^3/uL (150-450)
[2018-11-24] MEDS ORDERED: LORazepam INJ* 2 MG/ML 1 ML VIAL IV PUSH ONE (22:34)
[2018-11-24] MEDS ORDERED: Lorazepam PYXIS KEY PRN (22:34)
[2018-11-24] MEDS ORDERED: Iohexol 300* (CONTRAST) 10 ML SDV IV ONE (22:45)
[2018-11-24] MEDS ORDERED: Lorazepam PYXIS KEY ONE (23:05)
[2018-11-25 01:02] VITALS: BP 180/90
== END 2018-11-25 01:01 | disposition home or self-care (01) ==
LOC: ED 17:42
DX: R11.2 Nausea with vomiting, unspecified (principal); R19.7 Diarrhea, unspecified; Z87.891 Personal history of nicotine dependence; F10.10 Alcohol abuse, uncomplicated; Z79.899 Other long term (current) drug therapy; I10 Essential (primary) hypertension; J44.9 Chronic obstructive pulmonary disease, unspecified; E78.00 Pure hypercholesterolemia, unspecified; F41.9 Anxiety disorder, unspecified; F32.9 Major depressive disorder, single episode, unspecified
CPT/HCPCS: 36415; 74177; 80053; 80320; 80329; 81003; 81015; 83605; 84443; 85025; 85060; 87086; 93005; 96360; 96365; 96376; 99284; G0480; J2060; J2405; J3411; Q9967

== ENCOUNTER 2019-05-04 10:41 | Inpatient (IN) | payer MEDICARE ==
--- OUTSIDE RECORDS SUMMARY | 2019-05-04 10:54 | XMS REPORT | Continuity of Care Document ---
:1955 External Reference #:[id number] Author Name Kary Latham N.P. (transmitted by agent of provider Teri Lerma) Address [address], [place] [address] Care Team Providers Name Role Phone Katlin Gallegos MD - Internal Care Team Information [employer] Medicine Problems Active Problems Provider Date Lumbar radiculopathy Maurisio Mcwilliams M.D. Onset: 08/25/2015 Cervical spondylosis without myelopathy Maurisio Mcwilliams M.D. Onset: 08/25/2015 Hypercholesterolemia Katlin Gallegos M.D. Onset: 08/30/2015 Impaired fasting glycaemia Katlin Gallegos M.D. Onset: 08/30/2015 Gastritis Katlin Gallegos M.D. Onset: 01/08/2016 Note: PPI 40 since 09/29 Osteopenia Katlin Gallegos M.D. Onset: 06/20/2016 Alcohol abuse Katlin Gallegos M.D. Onset: 10/21/2018 Kidney stone Katlin Gallegos M.D. Onset: 12/03/2018 Note: right kidney/non obstructive Social History Type Date Description Comments Sex Unknown Tobacco Use Start: Unknown End: Former Cigarette Unknown Smoker Smoking Status Reviewed: 03/12/19 Former Cigarette Smoker ETOH Use Has consumed alcohol underwent inpatient in the past rehab in [facility] 2013 , has been sober since Tobacco Use Start: Unknown End: Patient is a former Started age 16; quit Unknown smoker 2013; smoked a pack per week Quit January 2018 Recreational Drug Use Denies Drug Use Exercise Type/Frequency Exercises regularly Allergies, Adverse Reactions, Alerts Description No Known Drug Allergies Medications Active Medications SIG Qnty Indications Ordering Date Provider Prednisone 4 tablets by mouth 40tabs J45.41 Kary Latham, 03/12/2019 10mg for 4 days,3 tablets N.P. Tablets by mouth for 4 days, 2 tablets by mouth for 4 days, 1 tablet by mouth for 4 days Azithromycin two tabs day one, 6tabs J45.41 Kary Faustinmal, 03/12/2019 250mg one daily till gone N.P. Tablets Shingrix intramuscular x 1 1units Katlin Gallegos, 02/10/2019 then repeat in 4 M.D. 50mcg/0.5ML months Suspension Rec Amlodipine Besylate 1 by mouth every day 90tabs I10 Katlinpedro Gallegos, 2018 M.D. 10mg Tablets Fluoxetine HCL once a day 90tabs F10.188 Katlinjb Gallegos, 02/10/2019 (PMDD) M.D. 20mg Tablets Thiamine once a day 90caps F10.188 Katlinjb Gallegos, 12/03/2018 50mg M.D. Capsules Folic Acid once aday 90tabs F10.188 Katlinpedro Gallegos, 12/03/2018 1mg M.D. Tablets Lorazepam 1 tablet every 12 10tabs Katlinpedro Gallegos, 12/03/2018 0.5mg hours as needed for M.D. Tablets anxiety Symbicort inhale two puffs by 10.200gm Kary Latham, 10/23/2016 mouth twice a day N.P. 160-4.5mcg/Act Aerosol Omeprazole take one capsule by 90caps K29.00 Katlinpedro Gallegos, 06/20/2016 20mg mouth every day M.D. Capsules Atorvastatin Take One Tablet By 90tabs R73.01 Katlinpedro Gallegos, 08/30/2015 Calcium Mouth Every Day M.D. 20mg Tablets Ventolin HFA 2 puffs by mouth 8gm J20.9 Katlinjb Gallegos, four times a day as M.D. 108(90Base) mcg/Act needed Aerosol Ibuprofen as needed Unknown 200mg Tablets Ultra Women Daily once daily Unknown Multivitamin Tablets ER Amlodipine Besylate Take One Tablet By 90tabs Katlin Gallegos, Mouth Every Day M.D. 5mg Tablets History Medications Abbi Allergy 1 by mouth every 30tabs J30.89 Katlin Gallegos, 02/10/2019 - day M.D. 03/11/2019 180mg Tablets Immunizations CPT Code Status Date Vaccine Lot # [id number] Given 02/04/2019 Pneumococcal Conjugate Vaccine 13 Valent For Intramuscular Use 95038 Given 02/04/2019 Fluzone High Dose 81843 Given 01/12/2018 Influenza Virus Vaccine, Quadrivalent, Split, Preservative Free 73357 Given 12/17/2017 Pneumococcal Conjugate Vaccine 13 Valent For [id number] Intramuscular Use 45073 Given 02/12/2016 Influ Virus Vaccine, Quadrivalent, Split Virus, [place] [address] Given 07/26/2009 Hepatitis B Vaccine Adult Dosage 17050 Given 09/20/2008 Tdap - Tetanus/Diptheria/Acellular Pertussis Vital Signs Date Vital Result Comment 03/12/2019 11:42am Height 65 inches 5'5" Weight 150.50 lb Heart Rate 77 /min BP Systolic Sitting 138 mmHg BP Diastolic Sitting 80 mmHg Body Temperature 97.1 F O2 % BldC Oximetry 95 % BMI (Body Mass Index) 25.0 kg/m2 02/10/2019 1:19pm Height 65 inches 5'5" Weight 153.00 lb Heart Rate 66 /min BP Systolic 140 mmHg manual BP Diastolic 88 mmHg manual BP Systolic Sitting 168 mmHg machine BP Diastolic Sitting 91 mmHg machine Body Temperature 97.1 F O2 % BldC Oximetry 98 % BMI (Body Mass Index) 25.5 kg/m2 Results Test Acquired Date Facility Test Result H/L Range Note Comp Metabolic 02/10/2019 [facility] Sodium 142 mmol/L Normal 135-145 Panel [address] [place] [address] [phone] Potassium 3.9 mmol/L Normal 3.5-5.0 Chloride 105 mmol/L Normal 101-111 Co2 Carbon Dioxide 30 mmol/L Normal 22-32 Anion Gap 7 mmol/L Normal 2-11 Calcium 9.7 mg/dL Normal 8.6-10.3 Albumin 4.2 g/dL Normal 3.2-5.2 Total Bilirubin 0.50 mg/dL Normal 0.2-1.0 Glucose 138 mg/dL High 70-100 Blood Urea Nitrogen 15 mg/dL Normal 6-24 Creatinine 0.64 mg/dL Normal 0.51-0.95 BUN/Creatinine Ratio 23.4 High 8-20 Total Protein 6.9 g/dL Normal 6.4-8.9 Globulin 2.7 g/dL Normal 2-4 Albumin/Globulin Ratio 1.6 Normal 1-3 Alkaline Phosphatase 56 U/L Normal 34-104 Alt 68 U/L High 7-52 Ast 44 U/L High 13-39 Egfr Non- 93.7 >60 Egfr 113.4 >60 1 Comp Metabolic 12/03/2018 [facility] Sodium 140 mmol/L Normal 135-145 Panel [address] [place] [address] [phone] Potassium 3.8 mmol/L Normal 3.5-5.0 Chloride 103 mmol/L Normal 101-111 Co2 Carbon Dioxide 31 mmol/L Normal 22-32 Anion Gap 6 mmol/L Normal 2-11 Glucose 120 mg/dL High 70-100 Blood Urea Nitrogen 11 mg/dL Normal 6-24 Creatinine 0.58 mg/dL Normal 0.51-0.95 BUN/Creatinine Ratio 19.0 Normal 8-20 Calcium 9.1 mg/dL Normal 8.6-10.3 Total Protein 6.4 g/dL Normal 6.4-8.9 Albumin 4.1 g/dL Normal 3.2-5.2 Globulin 2.3 g/dL Normal 2-4 Albumin/Globulin Ratio 1.8 Normal 1-3 Total Bilirubin 0.60 mg/dL Normal 0.2-1.0 Alkaline Phosphatase 58 U/L Normal 34-104 Alt 144 U/L High 7-52 Ast 73 U/L High 13-39 Egfr Non- 105.0 >60 Egfr 127.0 >60 2 Urinalysis Profile 11/24/2018 [facility] Urine Color Yellow [address] [place] [address] [phone] Urine Appearance Clear Urine Specific [place] 1.025 Normal 1.010-1.030 Urine pH 5.0 Normal 5-9 Urine Urobilinogen Negative Negative Urine Ketones Negative Negative Urine Protein Negative Negative Urine Leukocytes 3+ Abnormal Negative Urine Blood Negative Negative Urine Nitrite Negative Negative Urine Bilirubin 2+ Abnormal Negative Urine Glucose Negative Negative Urine White Blood Cell 1+(6-10/hpf) Abnormal Absent Urine Bacteria 1+ Abnormal Absent Urine Squamous Epithelial Cell Present Abnormal Absent Laboratory 11/24/2018 [facility] Lactic 2.2 mmol/L Critical 0.5-2.0 3 test finding 101 [facility] [place] [address] [phone] Comp Metabolic 11/24/2018 [facility] Sodium 133 mmol/L Low 135 -[address] [place] [address] [phone] Potassium 3.2 mmol/L Low 3.5-5.0 Chloride 94 mmol/L Low 101-111 Co2 Carbon Dioxide 29 mmol/L Normal 22-32 Anion Gap 10 mmol/L Normal 2-11 Glucose 162 mg/dL High 70-100 Blood Urea Nitrogen 23 mg/dL Normal 6-24 Creatinine 0.66 mg/dL Normal 0.51-0.95 BUN/Creatinine Ratio 34.8 High 8-20 Calcium 10.0 mg/dL Normal 8.6-10.3 Total Protein 7.3 g/dL Normal 6.4-8.9 Albumin 4.6 g/dL Normal 3.2-5.2 Globulin 2.7 g/dL Normal 2-4 Albumin/Globulin Ratio 1.7 Normal 1-3 Total Bilirubin 1.20 mg/dL High 0.2-1.0 Alkaline Phosphatase 78 U/L Normal 34-104 Alt 159 U/L High 7-52 Ast 103 U/L High 13-39 Egfr Non- 90.5 >60 Egfr 109.4 >60 4 Laboratory test 11/24/2018 [facility] Acetaminophen < 15 g/mL 5 finding [address] [place] [address] [phone] Alcohol 15 mg/dL High <10 Salicylate < 2.50 mg/dL <30 TSH (Thyroid Stim Horm) 4.18 mcIU/mL Normal 0.34-5.60 CBC Auto 11/24/2018 [facility] White Blood 6.7 10^3/uL Normal 3.5-10.8 Diff 101 [facility] [place] [address] [phone] Red Blood Count 4.66 10^6/uL Normal 3.70-4.87 Hemoglobin 15.4 g/dL Normal 12.0-16.0 Hematocrit 45 % Normal 35-47 Mean Corpuscular Volume 97 fL Normal 80-97 Mean Corpuscular Hemoglobin 33 pg High 27-31 Mean Corpuscular HGB Conc 34 g/dL Normal 31-36 Red Cell Distribution Width 14 % Normal 10-15 Abs Neutrophils 4.8 10^3/uL Normal 1.5-7.7 Abs Lymphocytes 1.0 10^3/uL Normal 1.0-4.8 Abs Monocytes 0.8 10^3/uL Normal 0-0.8 Abs Eosinophils 0.0 10^3/uL Normal 0-0.6 Abs Basophils 0.0 10^3/uL Normal 0-0.2 Abs Nucleated RBC 0.0 10^3/uL Granulocyte % 72.0 % Lymphocyte % 15.6 % Monocyte % 11.4 % Eosinophil % 0.5 % Basophil % 0.5 % Nucleated Red Blood Cells % 0.1 Platelet Count 88 10^3/uL Low 150-450 Mean Platelet Volume 9.5 fL Normal 7.4-10.4 Laboratory test 11/24/2018 [facility] Pathologist (SEE NOTE) [address] [place] [address] [phone] Urine Culture And 11/24/2018 [facility] Urine Culture SEE RESULT [address] [place] [address] [phone] CBC Auto Diff 11/16/2018 [facility] White Blood 6.7 Normal 3.5 - [address] Count 10^3/uL 10.8 [place] [address] [phone] Red Blood Count 4.72 10^6/uL Normal 3.70-4.87 Hemoglobin 15.7 g/dL Normal 12.0-16.0 Hematocrit 46 % Normal 35-47 Mean Corpuscular Volume 98 fL High 80-97 Mean Corpuscular Hemoglobin 33 pg High 27-31 Mean Corpuscular HGB Conc 34 g/dL Normal 31-36 Red Cell Distribution Width 14 % Normal 10-15 Platelet Count 216 10^3/uL Normal 150-450 Mean Platelet Volume 7.3 fL Low 7.4-10.4 Abs Neutrophils 3.0 10^3/uL Normal 1.5-7.7 Abs Lymphocytes 2.9 10^3/uL Normal 1.0-4.8 Abs Monocytes 0.7 10^3/uL Normal 0-0.8 Abs Eosinophils 0.0 10^3/uL Normal 0-0.6 Abs Basophils 0.1 10^3/uL Normal 0-0.2 Abs Nucleated RBC 0.0 10^3/uL Granulocyte % 44.8 % Lymphocyte % 43.5 % Monocyte % 9.8 % Eosinophil % 0.7 % Basophil % 1.2 % Nucleated Red Blood Cells % 0.2 Inr/Protime 11/16/2018 [facility] Inr 0.93 Normal 0.82-1.09 8 [address] [place] [address] [phone] Comp Metabolic 11/16/2018 [facility] Sodium 143 mmol/L Normal 135-145 Panel [address] [place] [address] [phone] Potassium 3.3 mmol/L Low 3.5-5.0 Chloride 106 mmol/L Normal 101-111 Co2 Carbon Dioxide 19 mmol/L Low 22-32 Anion Gap 18 mmol/L High 2-11 Glucose 95 mg/dL Normal 70-100 Blood Urea Nitrogen 9 mg/dL Normal 6-24 Creatinine 0.64 mg/dL Normal 0.51-0.95 BUN/Creatinine Ratio 14.1 Normal 8-20 Calcium 8.8 mg/dL Normal 8.6-10.3 Total Protein 7.1 g/dL Normal 6.4-8.9 Albumin 4.4 g/dL Normal 3.2-5.2 Globulin 2.7 g/dL Normal 2-4 Albumin/Globulin Ratio 1.6 Normal 1-3 Total Bilirubin 0.60 mg/dL Normal 0.2-1.0 Alkaline Phosphatase 79 U/L Normal 34-104 Alt 139 U/L High 7-52 Ast 130 U/L High 13-39 Egfr Non- 93.7 >60 Egfr 113.4 >60 9 Laboratory test 11/16/2018 [facility] Magnesium 2.0 mg/dL Normal 1.9-2.7 finding [address] [place] [address] [phone] Ua Routine 10/21/2018 [employer] [facility] Ua Specific 1.025 [place] Ua PH 7 Ua Color yellow Ua Appera clear Ua WBC ne Ua Protein trace Ua Glucose norm Ua Ketones neg Ua Bilirubin neg Ua Urobilinogen neg Ua Nitrite neg Ua Occult Blood neg Comp Metabolic 10/21/2018 [facility] Sodium 143 mmol/L Normal 135-145 Panel [address] [place] [address] [phone] Potassium 3.7 mmol/L Normal 3.5-5.0 Chloride 104 mmol/L Normal 101-111 Co2 Carbon Dioxide 30 mmol/L Normal 22-32 Anion Gap 9 mmol/L Normal 2-11 Glucose 120 mg/dL High 70-100 Blood Urea Nitrogen 16 mg/dL Normal 6-24 Creatinine 0.58 mg/dL Normal 0.51-0.95 BUN/Creatinine Ratio 27.6 High 8-20 Calcium 9.6 mg/dL Normal 8.6-10.3 Total Protein 6.9 g/dL Normal 6.4-8.9 Albumin 4.4 g/dL Normal 3.2-5.2 Globulin 2.5 g/dL Normal 2-4 Albumin/Globulin Ratio 1.8 Normal 1-3 Total Bilirubin 0.60 mg/dL Normal 0.2-1.0 Alkaline Phosphatase 64 U/L Normal 34-104 Alt 131 U/L High 7-52 Ast 90 U/L High 13-39 Egfr Non- 105.0 >60 Egfr 127.0 >60 10 1 Because ethnic data is not always readily [...] 15-29 5 Kidney failure <15 (or dialysis) 2 Because ethnic data is not always readily [...] 15-29 5 Kidney failure <15 (or dialysis) 3 Critical Result LACT:2.2 Called to [id number] at: 19:51:51 by:NAMRATA Read back by:[facility] Severe Sepsis and Septic Shock Management Bundle Measure requires all lactic acids initially measuring >2.0 mmol/L be repeated. 4 Because ethnic data is not always readily [...] 15-29 5 Kidney failure <15 (or dialysis) 5 Therapeutic concentration: <50 ug/mL Toxic concentration: >120 ug/mL 6 Moderate thrombocytopenia. Reviewed by Karime Martinez MD 7 SEE RESULT BELOW Name: ELBERT MUELLER : [address]: Marianne Alcantara MD Acct: [id number] Unit: [id number] AGE: 63 Location: ED Re11/24/18 SEX: F Status: DEP ER SPEC: [id number] IFEANYI: 11/24/[address] [facility] [address]: Marianne Alcantara MD REQ: [id number] RECD: 11/24/18 STATUS: JAVAD GONZALEZ DR: [facility] Katlin Gallegos MD _ SOURCE: URINE SPDESC: ORDERED: Urine Culture QUERIES: Urine Source: Clean Catch Procedure Result Reported Site Urine Culture Final 11/25/18- 1619 ML No Growth (<1,000 CFU/mL) * ML - Main Lab . END OF REPORT DEPARTMENT OF PATHOLOGY, [address] [place] [address] Madhu Feliz M.D. Director [facility] # [id number] Standard intensity warfarin therapeutic range: 2.0-3.0 High intensity warfarin therapeutic range: 2.5-3.5 9 Because ethnic data is not always readily [...] 15-29 5 Kidney failure <15 (or dialysis) 10 Because ethnic data is not always readily [...] 15-29 5 Kidney failure <15 (or dialysis) Procedures Date Code Description Status 01/13/2018 234727609 Bone Mineral Density Test Completed 01/13/2018 [id number] Mammogram Completed 06/19/2016 [id number] Bone Mineral Density Test Completed 06/19/2016 [id number] Mammogram Completed 09/19/2015 [id number] Colonoscopy Completed Medical Devices Description No Information Available Encounters Type Date Location Provider Dx Diagnosis Office Visit 02/10/2019 [facility] Internal Katlin Gallegos, I10 Essential ( primary) 1:20p Medicine - Ccmob M.DShawn hypertension F10.188 Alcohol abuse with other alcohol-induced disorder J30.89 Other allergic rhinitis Office Visit 12/03/2018 [facility] Internal Katlin F10.188 Alcohol abuse with 1:00p Elizabeth Gallegos M.D. other alcohol-induced Ccmob disorder I10 Essential (primary) hypertension Office Visit 10/21/2018 [facility] Internal Katlin F10.188 Alcohol abuse with 1:00p Elizabeth Gallegos M.D. other alcohol-induced Ccmob disorder I10 Essential (primary) hypertension R30.0 Dysuria Assessments Date Code Description Provider 03/12/2019 J45.41 Moderate persistent asthma with (acute) Kary Latham N.P. exacerbation 02/10/2019 I10 Essential (primary) hypertension Katlin Gallegos M.D. 02/10/2019 F10.188 Alcohol abuse with other alcohol-induced Katlin Gallegos M.D. disorder 02/10/2019 J30.89 Other allergic rhinitis Katlin Gallegos M.D. 12/03/2018 F10.188 Alcohol abuse with other alcoholnatasha Gallegos M.D. disorder 12/03/2018 I10 Essential (primary) hypertension Katlin Gallegos M.D. 10/21/2018 F10.188 Alcohol abuse with other alcohol-induced Katlin Gallegos M.D. disorder 10/21/2018 I10 Essential (primary) hypertension Katlin Gallegos M.D. 10/21/2018 R30.0 Dysuria Katlin Gallegos M.D. Plan of Treatment 03/12/2019 - Kary Latham NDarrynJ45.41 Moderate persistent asthma with (acute) exacerbationNew Medication:Prednisone 10 mg - 4 tablets by mouth for 4 days,3 tablets by mouth for 4 days, 2 tablets by mouth for 4 days, 1 tablet by mouth for 4 daysAzithromycin 250 mg - two tabs day one, one daily till goneComments:I have prescribed a course of Prednisone. Take 4 tablets for 4 days, 3 tablets for 4 days, 2 tabletsfor 4 days, then 1 tablet for 4 days.I have sent in an antibiotic, Azithromycin. Take 2 tablets today, then 1 tablet daily until they are gone, for a total of 5 days.Start using the Fluticasone nasal spray and stop using the Equate. You can use saline nasal spray to help clear your sinuses.If you do not gradually improve, please contact the office. Functional Status Description No Information Available Mental Status Description No Information Available Referrals Refer to Dr Reason for Referral Status Appt Date Alcohol & Drug [facility] Sent [id number] [place] [address] [phone]
--- OUTSIDE RECORDS SUMMARY | 2019-05-04 10:54 | XMS REPORT ---
:1955 Author Organization [facility] Address [address] [place] [address] Care Team Providers Name Role Phone Tristan Cheng Unavailable Unavailable PROBLEMS Type Condition ICD9-CM Code SCQ49-EY Code Onset Condition SNOMED Code Dates Status Problem Herpes simplex 054.9 Active 36338060 NOS Problem Asthma, 493.90 Active 580696984 Intermittent Problem Tobacco use 305.1 Active 155137046 disorder Problem Neck sprain and 847.0 Active 039790851 strain Problem GERD 530.81 Active 018111356 [Gastroesophageal reflux disease] Problem Alcohol 303.91 Active 390895025 dependence, other and unspecified, continuous Problem Essential 401.1 Active 4404022 hypertension, benign Problem Depression with 300.4 Active 570812644 anxiety ALLERGIES No Information ENCOUNTERS Encounter Location Date Diagnosis [place] [facility] [address] [place], [place] [address] [facility] [address] [place], [place] [address] [place] [facility] [address] [place] [address] [facility] [address] [place] [address] [place] [facility] [address] [place] [address] [facility] [address] [place] [address] [place] [facility] [address] [place] [address] [place] [facility] [address] [place] [address] [facility] [address] [place] [address] [place] [facility] [address] [place] [address] [place] [facility] [address] [place] [address] [place] [facility] [address] [place] [address] [place] [facility] [address] [place] [address] [place] [facility] [address] [place] [address] [place] [facility] [address] [place] [address] [place] [facility] [address] [place] [address] [facility] [address] [facility] [place], [place] [address] [place] [facility] [address] [place] [address] [place] [facility] [address] [place] [address] [place] [facility] [address] [place] [address] [place] [facility] [address] [place] [address] [place] [facility] [address] [place] [address] [place] [address] [place] [facility] [address] [place] [address] [place] [facility] [address] [place] [address] [place] [facility] [address] [place], [place] [address] [place] [facility] [address] [place], [place], [place] [address] 300.4 ; Alcohol dependence, other and unspecified, continuous 303.91 and Neck sprain and strain 847.0 [place] [facility] [address] [place], [place] [address] [place] [facility] [address] [place], [place] [address] [place] [facility] [address] [place] [address] [place] [facility] [address] [place], [place] [address] [place] [facility] [address] [place], [place], CHEST PAIN NOS 786.50 ; [place] [address] Anxiety disorder NOS 300.00 and Alcohol dependence, other and unspecified, continuous 303.91 [facility] [address] [facility] [address], [place] [address] [facility] [address] [place], [place] [address] [facility] [address] [facility] [place], [place], Alcohol dependence, [place] [address] and unspecified, continuous 303.91 ; GERD [Gastroesophageal reflux disease] 530.81 ; Depression with anxiety 300.4 ; Asthma, Intermittent 493.90 ; Essential hypertension, benign 401.1 and Tobacco use disorder 305.1 [facility] [address] [facility] [place], [place] [address] [place], [place] [address] [facility] [address] [facility] [place], [place], Alcohol dependence, [place] [address] and unspecified, continuous 303.91 ; Depression with anxiety 300.4 ; Asthma, Intermittent 493.90 ; GERD [Gastroesophageal reflux disease] 530.81 and Essential hypertension, benign 401.1 Facilitated Enrollment - UNKNOWN [place], [place] IMMUNIZATIONS No Known Immunizations SOCIAL HISTORY Never Assessed REASON FOR REFERRAL FUNCTIONAL STATUS PLAN OF CARE VITAL SIGNS MEDICATIONS Unknown Medications PROCEDURES No Known procedures RESULTS No Results REASON FOR VISIT Call Back Insurance Providers [facility] Member Patient Patient Patient Patient Patient Subscriber Subscriber Subscriber Group Insurance Plan Plan Plan Plan ID Relationship Address Phone Name Date of ID Name Date of No Type Insurance Insurance Insurance Coverage to Subscriber Address Phone Name Dates Wallace [phone] Wallace self Blank [id number] [facility] [address] Health [place] -UAA GG518 [place] [id number] [place] Hplex Werner Dept Hplex Werner [facility] [address] Case [phone] Case self Blank [id number] Management [place] 02 Management [place] [facility] [address] [facility] Blue [address] Blue self Blank [id number] [place] [id number] Choice Opt [place] 8 [facility] [address] [id number] [phone] Medicaid self Blank [id number] Wrap [facility] 56 Wrap [place] [address] [place] [address] [facility] [phone] [place] self Blank [id number] [facility] 42 Health [place] Medicaid [place] Medicaid Medical [place] Medical [id number] Medicaid [id number] [phone] Medicaid self Blank [id number] [facility] [address] [place] [address] Blue [phone] Blue self Blank [id number] Choice Opt 9255 [address] 83 Choice Opt [place] [id number] [place] Claims [id number] [place] Hplex Werner Dept Hplex Werner [facility] [address] Medicaid [phone] Medicaid self Blank [id number] [phone] Pending / [place] 02 Pending / [place] [id number] Self Pay MEDICAL (GENERAL) HISTORY Type Description Date Medical History depression with anxiety Medical History asthma - intermittent? Medical History GERD Medical History Alcohol dependence - severe Medical History Tobacco use disorder Medical History Hypertension Surgical History diverticulitis - partiel colonic resection Hospitalization History multiple admissions for alcohol detox
[2019-05-04] MEDS ORDERED: NS 0.9% 1000 ML** 1,000 ML IV ONE (11:09)
[2019-05-04] MEDS ORDERED: Lorazepam PYXIS KEY PRN (11:09)
[2019-05-04] MEDS ORDERED: LORazepam INJ* 2 MG/ML 1 ML VIAL IV PUSH ONE (11:09)
[2019-05-04] MEDS ORDERED: Thiamine TAB* 100 MG TAB PO ONE (11:10)
[2019-05-04] MEDS ORDERED: Multivitamins ADULT w/MIN LIQ* 15 ML UDC PO ONE (11:10)
[2019-05-04] MEDS ORDERED: Lorazepam PYXIS KEY ONE (11:12)
--- NOTE | 2019-05-04 11:15 | ED ---
Substance Abuse/Use - HPI Summary HPI Summary: 63 year old F presenting to [facility] complains of ETOH withdrawal since 05/02. Hx ETOH abuse. Hx ETOH withdrawal. Patient states she has been trying to quit but admits to drinking 1 gallon of vodka on Tuesday 05/02. She has tried to quit in the past and has had seizures from quitting and has been admitted to the hospital before. Patient states she hasn't eaten in 3 days, has had nausea/ vomiting, shakiness, epigastric pain x3 days. Patient states she had blood work done with primary care provider several weeks ago and was advised to stop drinking ETOH. Patient has had thrush from drinking ETOH and Symbicort she takes. The patient rates the pain 8/10 in severity. Symptoms aggravated by nothing. Symptoms alleviated by nothing. Medications reviewed. Hx hypertension. Hx DVT. No hx diabetes. Allergies noted. - History Of Current Complaint Chief Complaint: EDDetoxRequest Stated Complaint: NAUSEA/VOMITING/DTS PER PT Time Seen by Provider: 05/04/19 11:00 Hx Obtained From: Patient Ingestion History: Type/Name Of Drug - vodka, Amount Ingested - 1 gallon Overdose Characteristics: Oral Severity Currently: Severe - 8/10 Aggravating Factor(s): Nothing Alleviating Factor(s): Nothing Associated Signs And Symptoms: Other: - decreased appetite, nausea/vomiting, epigastric pain, shakiness - Allergies/Home Medications Allergies/Adverse Reactions: Allergies Allergy/AdvReac Type Severity Reaction Status Date / Time ipratropium AdvReac See Comment Verified 11/16/18 21:02 PMH/Surg Hx/FS Hx/Imm Hx Endocrine/Hematology History: Denies: Hx Anticoagulant Therapy, Hx Diabetes, Hx Thyroid Disease Cardiovascular History: Reports: Hx Hypercholesterolemia, Hx Hypertension Denies: Hx Pacemaker/ICD Respiratory History: Reports: Hx Chronic Obstructive Pulmonary Disease (COPD), Hx Pneumonia, Other Respiratory Problems/Disorders - Hx of pneumonia Denies: Hx Asthma GI History: Reports: Hx Diverticulosis - diverticulitis , Other GI Disorders - colon resection diviticulitis Denies: Hx Ulcer History: Reports: Other Problems/Disorders - uti Denies: Hx Renal Disease Musculoskeletal History: Reports: Hx Back Problems - neck djd Denies: Hx Osteoporosis Sensory History: Reports: Hx Contacts or Glasses Denies: Hx Hearing Aid Opthamlomology History: Reports: Hx Contacts or Glasses Neurological History: Reports: Hx Seizures - during etoh withdrawal Psychiatric History: Reports: Hx Anxiety, Hx Depression, Hx Panic Disorder, Hx Substance Abuse - ETOH Denies: Hx Eating Disorder, Hx of Violent Episodes Against Others - Cancer History Hx Chemotherapy: No Hx Radiation Therapy: No - Surgical History Surgery Procedure, Year, and Place: BILATERAL breast augmentation, appendectomy , colon resection, BILATERAL KNEE meniscus REPAIR, tonsils, CHOLECYSTECTOMY Hx Anesthesia Reactions: No - Immunization History Date of Tetanus Vaccine: Unknown Infectious Disease History: No Infectious Disease History: Denies: Hx Clostridium Difficile, Hx Hepatitis, Hx Human Immunodeficiency Virus (HIV), Hx of Known/Suspected MRSA, Hx Shingles, Hx Tuberculosis, Hx Known/ Suspected VRE, Hx Known/Suspected VRSA, History Other Infectious Disease, Traveled Outside the [place] in Last 30 Days - Family History Known Family History: Positive: Cardiac Disease, Other - FMHx of cancer - Social History Alcohol Use: Daily Hx Substance Use: Yes Substance Use Type: Reports: Other - ETOH Hx Tobacco Use: Yes Smoking Status (MU): Former Smoker Length of Time of Smoking/Using Tobacco: 1 year Review of Systems Positive: Other - shakiness Positive: Abdominal Pain - epigastric, Vomiting, Nausea, Other - decreased appetite All Other Systems Reviewed And Are Negative: Yes Physical Exam - Summary Physical Exam Summary: Constitutional: Well-developed, Well-nourished, Alert. (-) Distressed Skin: Warm, Dry HENT: Normocephalic; Atraumatic Eyes: Conjunctiva normal Neck: Musculoskeletal ROM normal neck. (-) JVD, (-) Stridor, (-) Tracheal deviation Cardio: Tachycardic, rate normal, Heart sounds normal; Intact distal pulses; The pedal pulses are 2+ and symmetric. Radial pulses are 2+ and symmetric. (-) Murmur Pulmonary/Chest wall: Effort normal. (-) Respiratory distress, (-) Wheezes, (-) Rales Abd: Soft, mild epigastric tenderness, (-) Distension, (-) Guarding, (-) Rebound Musculoskeletal: (-) Edema Lymph: (-) Cervical adenopathy Neuro: Alert, Oriented x3, patient is tremulous, no focal deficits Psych: Mood and affect Normal Triage Information Reviewed: Yes Vital Signs On Initial Exam: Initial Vitals Temp Pulse Resp BP Pulse Ox 99.6 F 121 18 138/102 96 05/04/19 10:42 05/04/19 10:42 05/04/19 10:42 05/04/19 10:42 05/04/19 10:42 Vital Signs Reviewed: Yes Diagnostics - Vital Signs Vital Signs Temp Pulse Resp BP Pulse Ox 05/04/19 10:42 99.6 F 121 18 138/102 96 - Laboratory Result Diagrams: 05/04/19 11:09 05/04/19 11:07 Lab Statement: Any lab studies that have been ordered have been reviewed, and results considered in the medical decision making process. - EKG 1110 Cardiac Rate: Tachycardia - 103 BPM EKG Rhythm: Sinus Tachycardia Summary of EKG Findings: Slight ST depression in V3-V6. ED physician has reviewed and interpreted this EKG Course/Dx - Course Course Of Treatment: 63 y/o F with hx ETOH abuse c/o ETOH withdrawal since Friday05/02/2019 after drinking 1 gallon of vodka. Patient reports that she hasn 't eaten in 3 days, has had nausea/vomiting, shakiness, epigastric pain x3 days. Upon physical exam, the patient is tachycardic. No murmur. She is tremulous. No focal deficits. She has mild epigastric tenderness. No distension. Bloodwork results with no significant abnormalities except for MCH 34, absolute lymphs 0.7, potassium 3.3, chloride 99, carbon dioxide 19, anion gap 20, glucose 138, magnesium 1.8, total bilirubin 1.60, AST 74, ALT 81. Alcohol <10. An EKG shows sinus tachycardia [address] depression in V3-V6. In the ED course, the patient was given potassium chloride, Ativan, multivitamins, normal saline fluids, Vitamin B1. We discussed patient care with Dr. Llanes, hospitalist, at 1126 who agreed to admit patient. The patient will be admitted to the hospitalist. The patient is agreeable with this plan. - Diagnoses Provider Diagnoses: Alcohol withdrawal - Physician Notifications Discussed Care Of Patient With: Raj Llanes Time Discussed With Above Provider: 11:26 Instructed by Provider To: Other - Dr. Llanes, hospitalist, agrees to admit patient. Discharge ED - Sign-Out/Discharge Documenting (check all that apply): Patient Departure - Discharge Plan Condition: Stable Disposition: ADMITTED TO [facility] - Billing Disposition and Condition Condition: STABLE Disposition: Admitted to [facility] - Attestation Statements Document Initiated by Sushila: Yes Documenting Scribe: Rosi Leonard Provider For Whom Sushila is Documenting (Include Credential): Nitin Portillo DO Scribe Attestation: IRosi, scribed for Nitin Portillo DO on 05/04/19 at 1611. Scribe Documentation Reviewed: Yes Provider Attestation: The documentation as recorded by the scribe, Rosi Leonard accurately reflects the service I personally performed and the decisions made by me, Nitin Portillo DO Status of Scribe Document: Viewed
[2019-05-04 11:23] LABS: ABS Basophils 0.1 10^3/ul (0-0.2); ABS Lymphocytes 0.7 10^3/ul (1.0-4.8); ABS Monocytes 0.7 10^3/ul (0-0.8); ABS Neutrophils 5.9 10^3/ul (1.5-7.7); Eosinophil % 0.1 %; Hematocrit 43 % (35-47); Hemoglobin 15.1 g/dL (12.0-16.0); Lymphocyte % 10.1 %; Mean Corpuscular HGB Conc 35 g/dL (31-36); Mean Corpuscular Hemoglobin 34 pg (27-31); Mean Corpuscular Volume 96 fL (80-97); Mean Platelet Volume 8.9 fL (7.4-10.4); Nucleated Red Blood Cells % 0.1; Platelet Count 168 10^3/uL (150-450); Red Cell Distribution Width 14 % (10-15); White Blood Count 7.4 10^3/uL (3.5-10.8)
[2019-05-04 11:37] LABS: Albumin 4.8 g/dL (3.2-5.2); Anion Gap 20 mmol/L (2-11); CO2 Carbon Dioxide 19 mmol/L (22-32); Calcium 9.4 mg/dL (8.6-10.3); Chloride 99 mmol/L (101-111); Magnesium 1.8 mg/dL (1.9-2.7); Potassium 3.3 mmol/L (3.5-5.0); Sodium 138 mmol/L (135-145)
[2019-05-04] MEDS ORDERED: KCL 10 MEQ/50 ML IVPREMIX* 10 MEQ/50 ML BAG IV ONE (11:40)
[2019-05-04] MEDS ORDERED: Potassium Chlor TAB* 20 MEQ TAB.ER PO ONE (11:40)
[2019-05-04 11:42] LABS: ALT 81 U/L (7-52); AST 74 U/L (13-39); Albumin/Globulin Ratio 1.7 (1-3); Alkaline Phosphatase 90 U/L (34-104); BUN/Creatinine Ratio 18.1 (8-20); Blood Urea Nitrogen 15 mg/dL (6-24); EGFR Non-African American 69.4 (>60); Globulin 2.9 g/dL (2-4); Glucose 138 mg/dL (70-100); Total Protein 7.7 g/dL (6.4-8.9)
[2019-05-04 12:01] LABS: Alcohol < 10 mg/dL (<10)
[2019-05-04] MEDS ORDERED: Thiamine INJ* 100 MG/ML 2 ML VIAL IM ONE (12:46)
[2019-05-04] MEDS ORDERED: Acetaminophen TAB* 325 MG PO PRN (12:46)
[2019-05-04] MEDS: Potassium Chlor TAB* 20 MEQ TAB.ER PO SCH ×2 (13:28→21:20)
[2019-05-04] MEDS: LORazepam TAB(*) 1 MG PO SCH ×5 (13:32→23:32)
[2019-05-04] MEDS ORDERED: Ondansetron INJ* 2 MG/ML VIAL IV PRN (14:50)
[2019-05-04] MEDS: Atorvastatin* 20 MG TAB PO SCH (17:29)
[2019-05-04] MEDS: Mometasone/Formoter 200/5 MDI INH SCH (19:22)
--- NOTE | 2019-05-04 19:29 | HP ---
CC: Dr. Katlin Gallegos at [facility] * HISTORY AND PHYSICAL: DATE OF ADMISSION: 05/04/19 CHIEF COMPLAINT: Alcohol withdrawal. HISTORY OF PRESENT ILLNESS: Ms. Mueller is a 63-year-old woman with a history of alcohol withdrawal, complicated by seizures, who decided to stop drinking 2 days prior to admission. She states that her reasons for quitting were that she was worried about her liver and did not want to develop cirrhosis. Apparently, she was told by her primary care that her liver enzymes were 4 times normal limit. She reports drinking up to a gallon of vodka per day, although she has tried to cut down, and sometimes drinks 2 L or 1 L. She reports that she has been vomiting at home for the last 3 days without seeing any blood in her vomitus. She came to the hospital today because of continued vomiting and feeling tremulous and anxious. The patient has had no recent counseling or alcoholics anonymous visits. She has been in the rehab in the past and feels that it does not work for her. The patient was most recently in the ER last November. She has not been admitted to the hospital since 2012 where she had 2 admissions for alcohol withdrawal. At that time, she reported a history of withdrawal seizures as well, but she states that at this point that the seizures happened years ago when she was living in [place]. She denies any history of delirium tremens. PAST MEDICAL HISTORY: Include hypertension, hyperlipidemia, depression, COPD. PAST SURGICAL HISTORY: She had hemicolectomy secondary to a diverticular bleed and appendectomy. MEDICATIONS: On admission are: 1. Amlodipine 5 mg p.o. daily. 2. Atorvastatin 20 mg p.o. q.h.s. 3. Budesonide/formoterol 1 inhalation b.i.d. 4. Fluoxetine 20 mg p.o. daily. 5. Ibuprofen 800 mg p.o. q.6 hours p.r.n. pain. 6. Omeprazole 20 mg p.o. daily. ALLERGIES: ALBUTEROL once caused muscle cramps likely due to hypokalemia, but she does not have any true allergies to medications. FAMILY HISTORY: Notable for mother is alive with emphysema. Father of complications of alcohol abuse. She has 2 sisters, who are doing well. Her brother of leukemia at age 46. SOCIAL HISTORY: She has been disabled for 3 to 5 years. She is . She has 4 children, who live in [place]. She quit tobacco 3 years ago and smoked off and on for many years prior to that, but never was a regular user, alcohol abuse as above. Denies recreational drugs. REVIEW OF SYSTEMS: The patient denies any fevers, weight loss or anorexia. The patient denies any chest pain or palpitations. The patient denies any cough or shortness of breath. The patient has had nausea and vomiting without any diarrhea or constipation. The patient denies any urinary symptoms. Remainder of her 14- point review of systems negative other than mentioned in the HPI. PHYSICAL EXAMINATION GENERAL: She is alert, in no acute distress. VITAL SIGNS: Temperature is 37.6, pulse 94 up to 117, respirations 17, blood pressure is 166/79, O2 sat is 96%. HEENT: Head is normocephalic, atraumatic. Sclerae anicteric. Pupils are equal , round, and reactive to light and accommodation. Oropharynx is moist. No lesions. NECK: No JVD. No carotid bruit. No thyromegaly. LUNGS: Clear to auscultation and percussion bilaterally. HEART: Tachycardic. Regular. No murmurs. ABDOMEN: Soft, nontender. Positive bowel sounds. Liver edges are palpable 2 cm below the costal margin and somewhat tender. There is no palpable abdominal masses. EXTREMITIES: No peripheral edema. Dorsalis pedis pulses are 1+ bilaterally. NEUROLOGIC: Cranial nerves II through XII are intact. Motor strength is 5/5 throughout. Deep tendon reflexes are 1+ and symmetric. She has moderate tremor in her hands at rest. Moderate tremor with sustention. She is alert and oriented x3. DIAGNOSTIC STUDIES/LAB DATA: Sodium 138, potassium 3.3, chloride 99, bicarb 19 , BUN 15, creatinine 0.83, anion gap was 20, glucose is 138, calcium 9.4, magnesium 1.8, albumin 4.8. AST 74, ALT 81, bilirubin 1.6. Alcohol level less than 10. White count is 7.4, hemoglobin 15.1, hematocrit 43%, platelet 161. EKG showed sinus tachycardia. ASSESSMENT AND PLAN: A 63-year-old woman with significant alcohol abuse history , history of seizures pertaining to alcohol withdrawal. The patient has high- risk of recurrent seizures and some risk of delirium tremens. The patient will be admitted to the hospital and be started on the [facility] protocol to prevent seizures and help her withdrawal comfortably and safely. The patient will be offered rehab after the detox today. 1. For hypertension, we will continue her on her current medications and monitor her pressure, which should improve with treatment of withdrawal. 2. For anxiety, we will continue her on Prozac and she of course will feel less anxious with the Ativan protocol as well. 3. Fluid electrolytes. She has hypomagnesemia and hypokalemia. This will be repleted and be checked in the morning. She appears to be taking liquids and taking p.o. as well, but she can have antiemetics to prevent nausea at this point. 4. Code status is full. 5. She is at moderate risk of DVT given her age, she will be on subcutaneous heparin while she is here in the hospital. [id number]/CPS #: [id number] MTDD
[2019-05-04] MEDS: Magnesium Oxide TAB* 400 MG PO SCH (21:19)
[2019-05-04] MEDS: Heparin VIAL(*) 5000 UNITS/ML VIAL (FIVE THOUSAND) SUBCUT SCH (21:21)
[2019-05-05] MEDS: LORazepam TAB(*) 1 MG PO SCH ×4 (03:43→17:09)
[2019-05-05] MEDS: Mometasone/Formoter 200/5 MDI INH SCH ×2 (07:48→19:14)
[2019-05-05] MEDS ORDERED: Lorazepam PYXIS KEY PRN (08:11)
[2019-05-05] MEDS ORDERED: LORazepam INJ* 2 MG/ML 1 ML VIAL IV PUSH ONE (08:11)
[2019-05-05] MEDS ORDERED: LORazepam INJ* 2 MG/ML 1 ML VIAL IV PUSH SCH (09:00)
[2019-05-05] MEDS ORDERED: Haloperidol INJ IV/IM* 5 MG/ML AMP IV SLOW PU PRN (09:02)
--- NOTE | 2019-05-05 09:02 | PN ---
Subjective Date of Service: 05/05/19 Interval History: Patient has been agitated, getting up, trying to leave. Talking about insurance , living situation. She is not oriented. Family History: Unchanged from Admission Social History: Unchanged from Admission Past Medical History: Unchanged from Admission Objective Active Medications: Acetaminophen (Tylenol Tab*) 650 mg PO Q4H PRN PRN Reason: MILD PAIN or TEMP > 100.4 Amlodipine Besylate (Norvasc Tab*) 5 mg PO DAILY [facility] Atorvastatin Calcium (Lipitor*) 20 mg PO QPM [facility] Last Admin: 05/04/19 17:29 Dose: 20 mg Fluoxetine HCl (Prozac Cap*) 20 mg PO DAILY [facility] Folic Acid (Folvite Tab*) 1 mg PO DAILY [facility] Heparin Sodium (Porcine) (Heparin Vial(*)) 5,000 units SUBCUT Q12HR [facility] Last Admin: 05/04/19 21:21 Dose: 5,000 units Lorazepam (Ativan Tab(*)) 2 mg PO Q12H [facility]; Taper Stop: 05/07/19 08:59 Last Admin: 05/05/19 05:38 Dose: 2 mg Lorazepam (Ativan Inj*) 0 - 3 mg IV PUSH .PER [place] PROTOCOL [facility]; Protocol Magnesium Oxide (Magox 400 Tab*) 400 mg PO BID [facility] Last Admin: 05/04/19 21:19 Dose: 400 mg Miscellaneous (Ativan Pyxis Packer) 1 ea N/A .ATIVAN IV PACKER PRN PRN Reason: PYXIS PACKER Mometasone Furoate/Formoterol Fumar (Dulera 200/5 Mdi*) 1 puff INH BID [facility]; Protocol Last Admin: 05/05/19 07:48 Dose: 1 puff Multivitamins/Minerals (Theragran/Minerals Tab*) 1 tab PO DAILY [facility] Ondansetron HCl (Zofran Inj*) 4 mg IV Q6H PRN PRN Reason: NAUSEA Last Admin: 05/04/19 15:13 Dose: 4 mg Pantoprazole Sodium (Protonix Tab*) 40 mg PO DAILY [facility] Potassium Chloride (Klor Con Er Tab*) 20 meq PO BID [facility] Last Admin: 05/04/19 21:20 Dose: 20 meq Thiamine HCl (Vitamin B-1 Tab*) 100 mg PO DAILY [facility] Vital Signs - 8 hr 05/05/19 05/05/1920 01:24 01:42 03:15 Temperature 36.8 C 36.3 C Pulse Rate 82 87 Respiratory 16 18 18 Rate Blood Pressure 152/86 150/80 (mmHg) O2 Sat by Pulse 96 96 Oximetry 05/05/19 05/05/19 05/05/19 03:43 05:22 05:38 Temperature Pulse Rate 88 Respiratory 18 18 Rate Blood Pressure 151/90 (mmHg) O2 Sat by Pulse 97 Oximetry 05/05/19 05/05/19 05/05/19 06:44 07:28 07:49 Temperature Pulse Rate 88 Respiratory 18 20 20 Rate Blood Pressure (mmHg) O2 Sat by Pulse 97 Oximetry Oxygen Devices in Use Now: None Appearance: awake, no distress, confused Eyes: No Scleral Icterus Ears/Nose/Mouth/Throat: NL Teeth, Lips, Gums Neck: NL Appearance and Movements; NL JVP Respiratory: Symmetrical Chest Expansion and Respiratory Effort, Clear to Auscultation Cardiovascular: NL Sounds; No Murmurs; No JVD, RRR Abdominal: NL Sounds; No Tenderness; No Distention Neurological: - - not oriented to place or day, gait unsteady Lines/Tubes/Other Access: Clean, Dry and Intact Peripheral IV Nutrition: Taking PO's Result Diagrams: 05/04/19 11:09 05/04/19 11:07 Assess/Plan/Problems-Billing Assessment: 63 year old w/ severe alcohol abuse, here for detox - Patient Problems (1) Alcohol withdrawal delirium, acute, hyperactive Current Visit: Yes Status: Acute Priority: High Code(s): F10.231 - ALCOHOL DEPENDENCE WITH WITHDRAWAL DELIRIUM SNOMED Code(s): 3879087 Comment: -Patient not responding adequately to PO ativan protocol -Switched to IV ativan -Will give one dose haldol -Continue safety monitor -may progress to full-blown DTs. (2) Hypertension Current Visit: Yes Status: Acute Priority: Medium Code(s): I10 - ESSENTIAL (PRIMARY) HYPERTENSION SNOMED Code(s): 73996196 Comment: -BP under adequate control given withdrawal syndrome (3) DVT prophylaxis Current Visit: Yes Status: Acute Priority: Low Code(s): Z29.9 - ENCOUNTER FOR PROPHYLACTIC MEASURES, UNSPECIFIED SNOMED Code(s): 215979273 Comment: -SC heparin (4) Hypomagnesemia Current Visit: Yes Status: Acute Priority: Medium Code(s): E83.42 - HYPOMAGNESEMIA SNOMED Code(s): 943752825 Comment: -Has been repleted orally, along with KCl for low K. -Recheck in AM Status and Disposition: Patient requires inpatient treatment due to risk of seizures, and current delirium, cannot leave AMA
[2019-05-05] MEDS: FLUoxetine CAP* 20 MG PO SCH (09:24)
[2019-05-05] MEDS: Folic Acid TAB* 1 MG PO SCH (09:24)
[2019-05-05] MEDS: amLODIPine TAB* 5 MG PO SCH (09:24)
[2019-05-05] MEDS: Potassium Chlor TAB* 20 MEQ TAB.ER PO SCH ×2 (09:24→20:48)
[2019-05-05] MEDS: Magnesium Oxide TAB* 400 MG PO SCH ×2 (09:24→20:48)
[2019-05-05] MEDS: Thiamine TAB* 100 MG TAB PO SCH (09:25)
[2019-05-05] MEDS: Pantoprazole TAB * 40 MG TAB PO SCH (09:25)
[2019-05-05] MEDS: Multivitamins/Minerals TAB PO SCH (09:25)
[2019-05-05] MEDS: Heparin VIAL(*) 5000 UNITS/ML VIAL (FIVE THOUSAND) SUBCUT SCH ×2 (09:32→20:48)
[2019-05-05] MEDS ORDERED: Loperamide CAP* 2 MG PO PRN (16:41)
[2019-05-05] MEDS: Atorvastatin* 20 MG TAB PO SCH (17:10)
[2019-05-05 22:13] LABS: Urine Benzodiazepine Screen None Detected (None Detect); Urine Opiates Screen None Detected (None Detect)
[2019-05-06] MEDS: LORazepam TAB(*) 1 MG PO SCH ×2 (05:00→17:08)
[2019-05-06 05:58] LABS: Calcium 8.3 mg/dL (8.6-10.3); EGFR African American 144.1 (>60); EGFR Non-African American 119.1 (>60); Magnesium 1.7 mg/dL (1.9-2.7); Potassium 3.5 mmol/L (3.5-5.0)
[2019-05-06] MEDS: Mometasone/Formoter 200/5 MDI INH SCH ×2 (07:35→19:50)
[2019-05-06] MEDS: Pantoprazole TAB * 40 MG TAB PO SCH (09:23)
[2019-05-06] MEDS: Potassium Chlor TAB* 20 MEQ TAB.ER PO SCH ×2 (09:24→20:13)
[2019-05-06] MEDS: Heparin VIAL(*) 5000 UNITS/ML VIAL (FIVE THOUSAND) SUBCUT SCH ×2 (09:24→20:14)
[2019-05-06] MEDS: amLODIPine TAB* 5 MG PO SCH (09:24)
[2019-05-06] MEDS: Multivitamins/Minerals TAB PO SCH (09:24)
[2019-05-06] MEDS: FLUoxetine CAP* 20 MG PO SCH (09:24)
[2019-05-06] MEDS: Thiamine TAB* 100 MG TAB PO SCH (09:24)
[2019-05-06] MEDS: Folic Acid TAB* 1 MG PO SCH (09:24)
[2019-05-06] MEDS: Magnesium Oxide TAB* 400 MG PO SCH ×2 (09:24→20:14)
[2019-05-06] MEDS ORDERED: LORazepam TAB(*) 1 MG PO ONE (12:35)
[2019-05-06] MEDS: Atorvastatin* 20 MG TAB PO SCH (17:09)
--- NOTE | 2019-05-06 18:36 | PN ---
Subjective Date of Service: 05/06/19 Interval History: Patient feeling better today. She has been calm and not scoring much on the [facility] protocol. Had anxiety earlier and had one ativan PO prn. Wants to go to outpatient treatment and AA after discharge. Family History: Unchanged from Admission Social History: Unchanged from Admission Past Medical History: Unchanged from Admission Objective Active Medications: Acetaminophen (Tylenol Tab*) 650 mg PO Q4H PRN PRN Reason: MILD PAIN or TEMP > 100.4 Amlodipine Besylate (Norvasc Tab*) 5 mg PO DAILY [facility] Last Admin: 05/06/19 09:24 Dose: 5 mg Atorvastatin Calcium (Lipitor*) 20 mg PO QPM [facility] Last Admin: 05/06/19 17:09 Dose: 20 mg Fluoxetine HCl (Prozac Cap*) 20 mg PO DAILY [facility] Last Admin: 05/06/19 09:24 Dose: 20 mg Folic Acid (Folvite Tab*) 1 mg PO DAILY [facility] Last Admin: 05/06/19 09:24 Dose: 1 mg Haloperidol Lactate (Haldol Inj Iv/Im*) 3 mg IV SLOW PU Q4H PRN PRN Reason: AGITATION Last Admin: 05/05/19 10:47 Dose: 3 mg Heparin Sodium (Porcine) (Heparin Vial(*)) 5,000 units SUBCUT Q12HR [facility] Last Admin: 05/06/19 09:24 Dose: 5,000 units Loperamide HCl (Imodium Cap*) 2 mg PO .SEE DIRECTIONS PRN PRN Reason: DIARRHEA Last Admin: 05/05/19 17:10 Dose: 2 mg Lorazepam (Ativan Tab(*)) 1 mg PO Q12H [facility]; Taper Stop: 05/07/19 08:59 Last Admin: 05/06/19 17:08 Dose: 1 mg Lorazepam (Ativan Inj*) 0 - 3 mg IV PUSH .PER [facility] PROTOCOL [facility]; Protocol Last Admin: 05/05/19 09:24 Dose: 1.5 mg Magnesium Oxide (Magox 400 Tab*) 400 mg PO BID [facility] Last Admin: 05/06/19 09:24 Dose: 400 mg Miscellaneous (Ativan Pyxis Packer) 1 ea N/A .ATIVAN IV PACKER PRN PRN Reason: PYXIS PACKER Mometasone Furoate/Formoterol Fumar (Dulera 200/5 Mdi*) 1 puff INH BID [facility]; Protocol Last Admin: 05/06/19 07:35 Dose: 1 puff Multivitamins/Minerals (Theragran/Minerals Tab*) 1 tab PO DAILY [facility] Last Admin: 05/06/19 09:24 Dose: 1 tab Ondansetron HCl (Zofran Inj*) 4 mg IV Q6H PRN PRN Reason: NAUSEA Last Admin: 05/04/19 15:13 Dose: 4 mg Pantoprazole Sodium (Protonix Tab*) 40 mg PO DAILY [facility] Last Admin: 05/06/19 09:23 Dose: 40 mg Potassium Chloride (Klor Con Er Tab*) 20 meq PO BID [facility] Last Admin: 05/06/19 09:24 Dose: 20 meq Thiamine HCl (Vitamin B-1 Tab*) 100 mg PO DAILY [facility] Last Admin: 05/06/19 09:24 Dose: 100 mg Vital Signs - 8 hr 05/06/19 05/06/19 05/06/19 11:10 13:09 13:10 Temperature 36.6 C 36.2 C Pulse Rate 85 89 Respiratory 18 17 17 Rate Blood Pressure 125/74 145/84 (mmHg) O2 Sat by Pulse 98 97 Oximetry 05/06/19 05/06/19 05/06/19 15:05 15:10 17:00 Temperature 37.0 C 36.5 C Pulse Rate 87 91 Respiratory 18 18 20 Rate Blood Pressure 145/88 141/86 (mmHg) O2 Sat by Pulse 99 98 Oximetry Oxygen Devices in Use Now: None Appearance: alert, calm Ears/Nose/Mouth/Throat: Clear Oropharnyx Neck: No Thyroid Enlargement, Masses Respiratory: Symmetrical Chest Expansion and Respiratory Effort Cardiovascular: NL Sounds; No Murmurs; No JVD Abdominal: NL Sounds; No Tenderness; No Distention Lines/Tubes/Other Access: Clean, Dry and Intact Peripheral IV Nutrition: Taking PO's Result Diagrams: 05/04/19 11:09 05/06/19 05:23 Additional Lab and Data: Laboratory Tests 05/06/19 05:23 Glucose 120 H Magnesium 1.7 L Assess/Plan/Problems-Billing Assessment: 63 year old w/ severe alcohol abuse, here for detox - Patient Problems (1) Alcohol withdrawal delirium, acute, hyperactive Current Visit: Yes Status: Acute Priority: High Code(s): F10.231 - ALCOHOL DEPENDENCE WITH WITHDRAWAL DELIRIUM SNOMED Code(s): 7722829 Comment: -Now responding well to ativan protocol -Delirium required switch IV ativan -May be ready for discharge in 1-2 days (2) Hypertension Current Visit: Yes Status: Acute Priority: Medium Code(s): I10 - ESSENTIAL (PRIMARY) HYPERTENSION SNOMED Code(s): 12587986 Comment: -BP under adequate control given withdrawal syndrome (3) DVT prophylaxis Current Visit: Yes Status: Acute Priority: Low Code(s): Z29.9 - ENCOUNTER FOR PROPHYLACTIC MEASURES, UNSPECIFIED SNOMED Code(s): 607055567 Comment: -SC heparin (4) Hypomagnesemia Current Visit: Yes Status: Acute Priority: Medium Code(s): E83.42 - HYPOMAGNESEMIA SNOMED Code(s): 474620282 Comment: -Has been repleted orally, along with KCl for low K. -Potassium improved today, continue supplements. Status and Disposition: Patient requires inpatient treatment, possible discharge tomorrow. Counseling and/or Coordination of Care Minutes: Discussed Alcohol/Drug jamul outpatient post DC
[2019-05-06] MEDS ORDERED: Melatonin 3 MG TAB PO SCH (21:00)
[2019-05-06] MEDS ORDERED: LORazepam INJ* 2 MG/ML 1 ML VIAL IV PUSH ONE (22:06)
[2019-05-07] MEDS: LORazepam TAB(*) 1 MG PO SCH (04:59)
[2019-05-07 08:02] VITALS: BP 147/92
[2019-05-07] MEDS: Mometasone/Formoter 200/5 MDI INH SCH (08:17)
[2019-05-07] MEDS: Thiamine TAB* 100 MG TAB PO SCH (10:24)
[2019-05-07] MEDS: Folic Acid TAB* 1 MG PO SCH (10:24)
[2019-05-07] MEDS: FLUoxetine CAP* 20 MG PO SCH (10:24)
[2019-05-07] MEDS: Magnesium Oxide TAB* 400 MG PO SCH (10:25)
[2019-05-07] MEDS: Potassium Chlor TAB* 20 MEQ TAB.ER PO SCH (10:26)
[2019-05-07] MEDS: amLODIPine TAB* 5 MG PO SCH (10:26)
[2019-05-07] MEDS: Pantoprazole TAB * 40 MG TAB PO SCH (10:27)
[2019-05-07] MEDS: Multivitamins/Minerals TAB PO SCH (10:27)
[2019-05-07] MEDS: Heparin VIAL(*) 5000 UNITS/ML VIAL (FIVE THOUSAND) SUBCUT SCH (10:28)
--- NOTE | 2019-05-08 20:53 | DS ---
CC: Dr. Gallegos at [facility]; Dr. Raj Llanes, [facility] DISCHARGE SUMMARY: DATE OF ADMISSION: 05/04/19 DATE OF DISCHARGE: 05/06/19 PRIMARY DIAGNOSIS: Alcohol withdrawal with delirium. SECONDARY DIAGNOSES: 1. Hypertension. 2. Hyperlipidemia. 3. Chronic obstructive pulmonary disease. 4. Depression. 5. Gastroesophageal reflux disease. 6. Hypomagnesemia. 7. Hypokalemia. 8. Marijuana use. MEDICATIONS ON DISCHARGE: 1. Amlodipine 5 mg p.o. daily. 2. Budesonide/formoterol 160/4.5 one inhalation b.i.d. 3. Fluoxetine 20 mg p.o. daily. 4. Ibuprofen 800 mg p.o. t.i.d. p.r.n. arthritis pain. 5. Omeprazole 20 mg p.o. daily. 6. Acetaminophen as needed. 7. Atorvastatin 20 mg p.o. q.h.s. 8. Folic acid 1 mg p.o. daily. 9. Loperamide 2 mg p.o. 4 times a day p.r.n. diarrhea. 10. Magnesium oxide 400 mg p.o. b.i.d. 11. Melatonin 3 mg p.o. q.h.s. p.r.n. insomnia. 12. Multivitamin 1 tab p.o. daily. 13. Potassium chloride 20 mEq p.o. b.i.d. 14. Thiamine 100 mg p.o. daily. CONSULTATIONS: None. PROCEDURES: None. COMPLICATIONS: None. HOSPITAL COURSE: The patient is a 63-year-old woman with history of recurrent severe alcohol abuse, presented to emergency department, asking for help with detoxification. She has been told by her [facility] doctor that her liver enzymes were elevated. She reported drinking up to a gallon of vodka per day. She had been in rehab in the past, but do not feel this was effective. The patient does n ot have any history of delirium tremens, but did report [facility] withdrawal [facility] [place]. The patient was placed on a [place] protocol and has significant doses of p.r.n. and s tanding benzodiazepines to prevent seizures. On hospital day 2, the patient had some delirium and ag itation requiring one-to-one observation. She received p.r.n. Haldol and additional Ativan and was a ble to remain on medical floor. On the day of discharge, the patient was much improved and able to a mbulate and speak coherently. She agrees to make plans to have outpatient treatment with the [facility] after discharge. She also plans to attend AA meetings. DISPOSITION: To home where she lives alone. ACTIVITY: As tolerated. DIET: Low salt. FOLLOWUP: Follow up with primary care within 1 week. Follow up with [facility] for intake. CONDITION: Stable. STATUS: Inpatient. TIME SPENT: I spent 40 minutes with the patient on day of discharge and completing necessary paperwo rk. [id number]/CPS #: [id number]
== END 2019-05-07 11:10 | disposition home or self-care (01) | DRG 897 ==
LOC: ED 10:41 → MED 12:44 → EEVIPCON 12:44 → MED 05-07 00:51
PROVIDERS: ADMIT Internal Medicine; ATTEND Internal Medicine
DX: F10.231 Alcohol dependence with withdrawal delirium (principal); Y90.0 Blood alcohol level of less than 20 mg/100 ml; E78.00 Pure hypercholesterolemia, unspecified; I10 Essential (primary) hypertension; J44.9 Chronic obstructive pulmonary disease, unspecified; F41.0 Panic disorder [episodic paroxysmal anxiety]; E78.5 Hyperlipidemia, unspecified; E83.42 Hypomagnesemia; E87.6 Hypokalemia; K21.9 Gastro-esophageal reflux disease without esophagitis; F12.90 Cannabis use, unspecified, uncomplicated; F32.9 Major depressive disorder, single episode, unspecified; Z88.8 Allergy status to other drugs, medicaments and biological substances; Z87.891 Personal history of nicotine dependence; Z79.899 Other long term (current) drug therapy
CPT/HCPCS: 36415; 80048; 80053; 80307; 80320; 83735; 85025; 93005; 94640; 96374; 99284; A9270-GY; G0480; J1630; J1644; J2060; J2405; J3411

== ENCOUNTER 2019-10-09 11:23 | Inpatient (IN) ==
[2019-10-09] MEDS ORDERED: NS 0.9% 1000 ml BAG 1,000 ML IV ONE ×2 (11:32→12:08)
[2019-10-09] MEDS ORDERED: LORazepam 2 mg VIAL 1 ml IV PUSH ONE ×2 (11:33→13:45)
[2019-10-09] MEDS ORDERED: Lorazepam PYXIS KEY PRN ×2 (11:33→13:45)
[2019-10-09] MEDS ORDERED: Lorazepam PYXIS KEY ONE (11:40)
[2019-10-09 11:42] LABS: ABS Basophils 0.1 10^3/ul (0-0.2); ABS Lymphocytes 1.5 10^3/ul (1.0-4.8); ABS Monocytes 0.3 10^3/ul (0-0.8); ABS Neutrophils 6.3 10^3/ul (1.5-7.7); Eosinophil % 0.1 %; Hematocrit 43 % (35-47); Hemoglobin 14.8 g/dL (12.0-16.0); Mean Corpuscular HGB Conc 35 g/dL (31-36); Mean Corpuscular Hemoglobin 33 pg (27-31); Mean Corpuscular Volume 95 fL (80-97); Platelet Count 225 10^3/uL (150-450); Red Blood Count 4.49 10^6 /uL (3.70-4.87); Red Cell Distribution Width 14 % (10-15); White Blood Count 8.2 10^3/uL (3.5-10.8)
[2019-10-09] MEDS ORDERED: Ondansetron 4 mg VIAL 2 MG/ML 2 ml VIAL IV ONE ×2 (11:43→12:47)
[2019-10-09 11:59] LABS: ALT 53 U/L (7-52); AST 57 U/L (13-39); Albumin 4.5 g/dL (3.2-5.2); Albumin/Globulin Ratio 1.6 (1-3); Alkaline Phosphatase 82 U/L (34-104); BUN/Creatinine Ratio 18.1 (8-20); Blood Urea Nitrogen 15 mg/dL (6-24); Calcium 8.7 mg/dL (8.6-10.3); Chloride 100 mmol/L (101-111); EGFR African American 83.7 (>60); EGFR Non-African American 69.2 (>60); Globulin 2.8 g/dL (2-4); Glucose 172 mg/dL (70-100); Potassium 2.9 mmol/L (3.5-5.0); Sodium 140 mmol/L (135-145); Total Protein 7.3 g/dL (6.4-8.9)
[2019-10-09 12:08] LABS: Anion Gap 26 mmol/L (2-11); CO2 Carbon Dioxide 14 mmol/L (22-32)
[2019-10-09 12:14] LABS: Acetaminophen < 15 mcg/mL; Alcohol, S < 10 mg/dL (<10); Salicylate < 2.50 mg/dL (<30)
[2019-10-09] MEDS ORDERED: Morphine 4 MG/ML VIAL (1 ml) IV ONE (12:47)
[2019-10-09] MEDS ORDERED: Iohexol 300 (CONTRAST) 10 ML SDV IV ONE (13:09)
[2019-10-09] MEDS: Potassium Chlor 20 meq TAB.ER PO ONE ×2 (13:10→15:39)
[2019-10-09] MEDS: KCL 20 MEQ/100 ML IVPREMIX 20 MEQ/100 ML BAG IV SCH ×2 (13:43→16:32)
[2019-10-09] MEDS ORDERED: Thiamine 100 MG/ML 2 ml VIAL (200 mg) IM ONE (14:19)
[2019-10-09 14:39] LABS: Urine Appearance Cloudy; Urine Bilirubin Negative (Negative); Urine Blood Negative (Negative); Urine Color Yellow; Urine Glucose Negative (Negative); Urine Ketones 1+ (Negative); Urine Nitrite Negative (Negative); Urine Protein Negative (Negative); Urine Specific Gravity 1.021 (1.010-1.030); Urine Urobilinogen Negative (Negative)
[2019-10-09] MEDS ORDERED: Ondansetron 4 mg VIAL 2 MG/ML 2 ml VIAL IV PRN (14:41)
[2019-10-09] MEDS ORDERED: Thiamine 100 MG/ML 2 ml VIAL 250 MG in NS 0.9% 100 ml BAG 100 ML IV ONE (14:46)
[2019-10-09] MEDS ORDERED: Albuterol (2.5 MG) 0.5 % CONC 0.5 ML NEB.SOLN INH ONE (14:58)
[2019-10-09 15:02] LABS: Urine Benzodiazepine Screen None Detected (None Detect); Urine Cannabinoids Screen Presumptive Positive (None Detect); Urine Opiates Screen Presumptive Positive (None Detect)
[2019-10-09 15:32] LABS: Lipase 18 U/L (11.0-82.0); Magnesium 1.3 mg/dL (1.9-2.7)
[2019-10-09] MEDS: Lactated Ringers 1000 ml BAG 1,000 ML IV SCH (16:01)
[2019-10-09] MEDS: Enoxaparin 40 MG/0.4 ML SYR SUBCUT SCH (16:32)
[2019-10-09 16:38] LABS: INR 1.03 (0.82-1.09)
[2019-10-09] MEDS: Mometasone/Formoter 200/5 MDI INH SCH (20:25)
[2019-10-10] MEDS: Lactated Ringers 1000 ml BAG 1,000 ML IV SCH ×2 (04:11→14:30)
[2019-10-10 07:01] LABS: ABS Eosinophils 0.1 10^3/ul (0-0.6); ABS Lymphocytes 1.5 10^3/ul (1.0-4.8); ABS Monocytes 0.6 10^3/ul (0-0.8); ABS Neutrophils 4.9 10^3/ul (1.5-7.7); Hematocrit 37 % (35-47); Lymphocyte % 21.4 %; Mean Corpuscular HGB Conc 36 g/dL (31-36); Mean Corpuscular Hemoglobin 34 pg (27-31); Mean Corpuscular Volume 94 fL (80-97); Mean Platelet Volume 8.7 fL (7.4-10.4); Platelet Count 138 10^3/uL (150-450); Red Blood Count 3.88 10^6 /uL (3.70-4.87); Red Cell Distribution Width 14 % (10-15); White Blood Count 7.1 10^3/uL (3.5-10.8)
[2019-10-10 07:25] LABS: Albumin 3.7 g/dL (3.2-5.2); Albumin/Globulin Ratio 1.6 (1-3); BUN/Creatinine Ratio 18.4 (8-20); Calcium 7.9 mg/dL (8.6-10.3); EGFR African American 153.8 (>60); EGFR Non-African American 127.1 (>60); Globulin 2.3 g/dL (2-4); Magnesium 1.1 mg/dL (1.9-2.7); Potassium 2.9 mmol/L (3.5-5.0); Total Bilirubin 1.1 mg/dL (0.2-1.0)
[2019-10-10] MEDS: Mometasone/Formoter 200/5 MDI INH SCH ×2 (07:27→19:54)
[2019-10-10] MEDS: Multivitamins/Minerals TAB PO SCH (08:20)
[2019-10-10] MEDS ORDERED: Magnesium Sulf 4 GM/100 ML IV 4,000 MG/100 ML BAG IVPB ONE (09:00)
[2019-10-10] MEDS ORDERED: Potassium Chlor 20 meq TAB.ER PO ONE ×3 (09:41→14:00)
[2019-10-10] MEDS: Potassium Chlor 20 meq TAB.ER PO ONE ×2 (09:59→10:05)
[2019-10-10] MEDS ORDERED: Potassium Chloride LIQUID 20 MEQ/15 ML LIQUID PO ONE ×3 (10:00→18:00)
[2019-10-10] MEDS: Enoxaparin 40 MG/0.4 ML SYR SUBCUT SCH (14:29)
[2019-10-11] MEDS: Lactated Ringers 1000 ml BAG 1,000 ML IV SCH ×2 (00:22→09:12)
[2019-10-11 06:29] LABS: ABS Eosinophils 0.2 10^3/ul (0-0.6); ABS Lymphocytes 1.6 10^3/ul (1.0-4.8); ABS Monocytes 0.5 10^3/ul (0-0.8); ABS Neutrophils 2.8 10^3/ul (1.5-7.7); Eosinophil % 3.8 %; Hematocrit 38 % (35-47); Hemoglobin 13.3 g/dL (12.0-16.0); Mean Corpuscular HGB Conc 35 g/dL (31-36); Mean Corpuscular Hemoglobin 33 pg (27-31); Mean Corpuscular Volume 95 fL (80-97); Mean Platelet Volume 8.7 fL (7.4-10.4); Nucleated Red Blood Cells % 0.1; Platelet Count 121 10^3/uL (150-450); Red Blood Count 4.05 10^6 /uL (3.70-4.87); Red Cell Distribution Width 14 % (10-15); White Blood Count 5.2 10^3/uL (3.5-10.8)
[2019-10-11 06:45] LABS: Albumin 3.8 g/dL (3.2-5.2); Albumin/Globulin Ratio 1.6 (1-3); BUN/Creatinine Ratio 8.3 (8-20); Calcium 8.2 mg/dL (8.6-10.3); EGFR African American 157.6 (>60); EGFR Non-African American 130.2 (>60); Globulin 2.4 g/dL (2-4); Magnesium 1.5 mg/dL (1.9-2.7); Potassium 3.4 mmol/L (3.5-5.0); Total Bilirubin 0.9 mg/dL (0.2-1.0); Total Protein 6.2 g/dL (6.4-8.9)
[2019-10-11] MEDS: Mometasone/Formoter 200/5 MDI INH SCH ×2 (07:32→22:32)
[2019-10-11] MEDS ORDERED: Potassium Chlor 20 meq TAB.ER PO ONE (07:36)
[2019-10-11] MEDS ORDERED: Magnesium Sulfate 2 gm BAG 2 GM/50 ML BAG IVPB ONE (07:36)
[2019-10-11] MEDS ORDERED: KCL 20 MEQ/100 ML IVPREMIX 20 MEQ/100 ML BAG IV ONE (07:37)
[2019-10-11] MEDS: Multivitamins/Minerals TAB PO SCH (09:07)
[2019-10-11] MEDS: Enoxaparin 40 MG/0.4 ML SYR SUBCUT SCH (15:17)
[2019-10-11 18:00] LABS: Calcium 9.3 mg/dL (8.6-10.3); Potassium 4.6 mmol/L (3.5-5.0)
[2019-10-11 18:05] LABS: BUN/Creatinine Ratio 12.5 (8-20); EGFR African American 131.9 (>60)
[2019-10-12 07:24] LABS: BUN/Creatinine Ratio 17.6 (8-20); Calcium 8.8 mg/dL (8.6-10.3); EGFR African American 146.9 (>60); EGFR Non-African American 121.4 (>60); Magnesium 1.8 mg/dL (1.9-2.7); Potassium 3.8 mmol/L (3.5-5.0)
[2019-10-12] MEDS: Mometasone/Formoter 200/5 MDI INH SCH (07:41)
[2019-10-12] MEDS: Multivitamins/Minerals TAB PO SCH (09:56)
[2019-10-12 10:17] VITALS: BP 130/80
== END 2019-10-12 11:16 | disposition home or self-care (01) | DRG 897 ==
LOC: ED 11:23 → MED 15:45
PROVIDERS: ADMIT Internal Medicine; ATTEND Internal Medicine

== ENCOUNTER 2020-06-14 23:00 | Inpatient (IN) ==
[2020-06-14] MEDS ORDERED: LORazepam 2 mg VIAL 1 ml IV PUSH ONE (23:20)
[2020-06-14] MEDS ORDERED: NS 0.9% 1000 ml BAG 1,000 ML IV ONE (23:20)
[2020-06-14] MEDS ORDERED: Lorazepam PYXIS KEY PRN (23:20)
[2020-06-14] MEDS ORDERED: Lorazepam PYXIS KEY ONE (23:30)
[2020-06-14 23:39] LABS: ABS Lymphocytes 0.6 10^3/ul (1.0-4.8); ABS Monocytes 0.6 10^3/ul (0-0.8); ABS Neutrophils 2.8 10^3/ul (1.5-7.7); Eosinophil % 0.4 %; Hematocrit 41 % (35-47); Hemoglobin 14.2 g/dL (12.0-16.0); Mean Corpuscular HGB Conc 34 g/dL (31-36); Mean Corpuscular Hemoglobin 33 pg (27-31); Mean Corpuscular Volume 96 fL (80-97); Mean Platelet Volume 8.8 fL (7.4-10.4); Nucleated Red Blood Cells % 0.2; Platelet Count 47 10^3/uL (150-450); Red Blood Count 4.31 10^6 /uL (3.70-4.87); Red Cell Distribution Width 16 % (10-15); White Blood Count 4.1 10^3/uL (3.5-10.8)
[2020-06-14 23:51] LABS: ALT 124 U/L (7-52); AST 191 U/L (13-39); Albumin 4.5 g/dL (3.2-5.2); Albumin/Globulin Ratio 1.6 (1-3); Alkaline Phosphatase 97 U/L (34-104); Anion Gap 13 mmol/L (2-11); BUN/Creatinine Ratio 18.6 (8-20); Blood Urea Nitrogen 11 mg/dL (6-24); CO2 Carbon Dioxide 29 mmol/L (22-32); Calcium 10.1 mg/dL (8.6-10.3); Chloride 94 mmol/L (101-111); EGFR African American 124.2 (>60); EGFR Non-African American 102.6 (>60); Globulin 2.9 g/dL (2-4); Glucose 143 mg/dL (70-100); Potassium 3.2 mmol/L (3.5-5.0); Sodium 136 mmol/L (135-145); Total Protein 7.4 g/dL (6.4-8.9)
[2020-06-15 00:01] LABS: Large Platelets Present
[2020-06-15 00:03] LABS: Alcohol, S < 10 mg/dL (<10); Salicylate < 2.50 mg/dL (<30)
[2020-06-15] MEDS ORDERED: Ondansetron 4 mg VIAL 2 MG/ML 2 ml VIAL IV ONE (00:04)
[2020-06-15 00:16] LABS: Acetaminophen < 15 mcg/mL
[2020-06-15 00:19] LABS: TSH Ultra Thyroid Stim Horm 5.29 mcIU/mL (0.34-5.60)
[2020-06-15] MEDS: KCL 20 MEQ/100 ML IVPREMIX 20 MEQ/100 ML BAG IV SCH ×2 (03:00→05:36)
[2020-06-15] MEDS: Multivitamins/Minerals TAB PO SCH (08:44)
[2020-06-15] MEDS: Mometasone/Formoter 200/5 MDI INH SCH ×2 (09:03→20:09)
[2020-06-15] MEDS ORDERED: Ondansetron 4 mg VIAL 2 MG/ML 2 ml VIAL IV PRN (09:30)
[2020-06-15 10:03] LABS: Cholesterol 249 mg/dL; HDL Cholesterol 92.5 mg/dL; LDL Cholesterol 136 mg/dL; Triglycerides 101 mg/dL
[2020-06-15 10:24] LABS: Urine Appearance Clear; Urine Bilirubin Negative (Negative); Urine Blood Negative (Negative); Urine Color Yellow; Urine Glucose Negative (Negative); Urine Ketones Negative (Negative); Urine Nitrite Negative (Negative); Urine Protein Negative (Negative); Urine Urobilinogen Negative (Negative)
[2020-06-15 11:04] LABS: Urine Benzodiazepine Screen Presumptive Positive (None Detect); Urine Cannabinoids Screen Presumptive Positive (None Detect); Urine Opiates Screen None Detected (None Detect)
[2020-06-15] MEDS: Polyethylene Glycol 3350 17 GM PACKET PO SCH (12:38)
[2020-06-15] MEDS: Magnesium Sulfate 2 gm BAG 2 GM/50 ML BAG IVPB SCH ×2 (14:18→17:56)
[2020-06-16 05:19] LABS: Albumin 3.9 g/dL (3.2-5.2); Albumin/Globulin Ratio 1.6 (1-3); BUN/Creatinine Ratio 26.7 (8-20); Calcium 8.7 mg/dL (8.6-10.3); EGFR African American 169.7 (>60); EGFR Non-African American 140.3 (>60); Globulin 2.5 g/dL (2-4); Potassium 3.4 mmol/L (3.5-5.0); Total Bilirubin 0.9 mg/dL (0.2-1.0); Total Protein 6.4 g/dL (6.4-8.9)
[2020-06-16 05:20] LABS: ABS Eosinophils 0.1 10^3/ul (0-0.6); ABS Monocytes 0.5 10^3/ul (0-0.8); ABS Neutrophils 1.9 10^3/ul (1.5-7.7); Eosinophil % 3.7 %; Hematocrit 42 % (35-47); Hemoglobin 13.6 g/dL (12.0-16.0); Lymphocyte % 27.6 %; Mean Corpuscular HGB Conc 32 g/dL (31-36); Mean Corpuscular Hemoglobin 32 pg (27-31); Mean Corpuscular Volume 100 fL (80-97); Mean Platelet Volume 9.6 fL (7.4-10.4); Nucleated Red Blood Cells % 0.2; Platelet Count 52 10^3/uL (150-450); Red Cell Distribution Width 17 % (10-15); White Blood Count 3.6 10^3/uL (3.5-10.8)
[2020-06-16] MEDS: Multivitamins/Minerals TAB PO SCH (07:59)
[2020-06-16] MEDS: Polyethylene Glycol 3350 17 GM PACKET PO SCH (08:01)
[2020-06-16] MEDS: Mometasone/Formoter 200/5 MDI INH SCH ×2 (10:08→20:03)
[2020-06-16] MEDS ORDERED: Potassium Chlor 20 meq TAB.ER PO ONE (10:29)
[2020-06-17 06:14] LABS: BUN/Creatinine Ratio 34.1 (8-20); Calcium 9.2 mg/dL (8.6-10.3); EGFR African American 174.2 (>60); Potassium 3.5 mmol/L (3.5-5.0)
[2020-06-17] MEDS: Mometasone/Formoter 200/5 MDI INH SCH (07:23)
[2020-06-17 09:19] VITALS: BP 134/73
[2020-06-17] MEDS: Polyethylene Glycol 3350 17 GM PACKET PO SCH (10:23)
[2020-06-17] MEDS: Multivitamins/Minerals TAB PO SCH (10:23)
== END 2020-06-17 17:01 | disposition home or self-care (01) | DRG 897 ==
LOC: ED 23:00 → MED 23:00 → OBSVTOIN 06-15 03:37 → MED 06-15 04:44
PROVIDERS: ADMIT Internal Medicine; ATTEND Hospitalist

== ENCOUNTER 2020-07-21 07:44 | Inpatient (IN) ==
[2020-07-21] MEDS ORDERED: LORazepam 2 mg VIAL 1 ml IV PUSH ONE (08:05)
[2020-07-21] MEDS ORDERED: Lorazepam PYXIS KEY PRN ×3 (08:05→13:37)
[2020-07-21] MEDS ORDERED: NS 0.9% 1000 ml BAG 1,000 ML ONE (08:26)
[2020-07-21] MEDS ORDERED: Thiamine 100 MG/ML 2 ml VIAL (200 mg) ONE (08:26)
[2020-07-21] MEDS ORDERED: Thiamine 100 MG/ML 2 ml VIAL 100 MG, Folic Acid IV 1 MG, Multiple Vitamin IV ADULT 10 M... IV ONE (08:30)
[2020-07-21 08:35] LABS: ABS Basophils 0.1 10^3/ul (0-0.2); ABS Lymphocytes 1.2 10^3/ul (1.0-4.8); ABS Monocytes 0.7 10^3/ul (0-0.8); ABS Neutrophils 4.7 10^3/ul (1.5-7.7); Hematocrit 43 % (35-47); Hemoglobin 14.6 g/dL (12.0-16.0); Lymphocyte % 17.7 %; Mean Corpuscular HGB Conc 34 g/dL (31-36); Mean Corpuscular Hemoglobin 33 pg (27-31); Mean Corpuscular Volume 97 fL (80-97); Mean Platelet Volume 8.6 fL (7.4-10.4); Nucleated Red Blood Cells % 0.1; Platelet Count 156 10^3/uL (150-450); Red Cell Distribution Width 15 % (10-15); White Blood Count 6.6 10^3/uL (3.5-10.8)
[2020-07-21 08:52] LABS: Albumin 4.6 g/dL (3.2-5.2); Anion Gap 20 mmol/L (2-11); CO2 Carbon Dioxide 25 mmol/L (22-32); Calcium 11.1 mg/dL (8.6-10.3); Chloride 94 mmol/L (101-111); Potassium 3.3 mmol/L (3.5-5.0); Sodium 139 mmol/L (135-145)
[2020-07-21 08:58] LABS: ALT 108 U/L (7-52); AST 94 U/L (13-39); Albumin/Globulin Ratio 1.4 (1-3); Alkaline Phosphatase 74 U/L (34-104); Blood Urea Nitrogen 20 mg/dL (6-24); EGFR African American 82.3 (>60); Globulin 3.2 g/dL (2-4); Glucose 175 mg/dL (70-100); Total Protein 7.8 g/dL (6.4-8.9)
[2020-07-21 09:06] LABS: Alcohol, S < 10 mg/dL (<10)
[2020-07-21] MEDS ORDERED: Ondansetron 4 mg VIAL 2 MG/ML 2 ml VIAL IV PRN (09:37)
[2020-07-21 10:18] LABS: Magnesium 1.1 mg/dL (1.9-2.7)
[2020-07-21] MEDS ORDERED: Magnesium Sulf 4 GM/100 ML IV 4,000 MG/100 ML BAG IVPB ONE (11:21)
[2020-07-21] MEDS: Enoxaparin 40 MG/0.4 ML SYR SUBCUT SCH (13:45)
[2020-07-21] MEDS: LORazepam 2 mg VIAL 1 ml IV PUSH PRN (14:05)
[2020-07-21] MEDS ORDERED: Potassium Chloride LIQUID 20 MEQ/15 ML LIQUID PO ONE (16:00)
[2020-07-21] MEDS ORDERED: Calcium Carb (TUMS) 500 mg CHEW TAB PO PRN (18:18)
[2020-07-21] MEDS: Mometasone/Formoter 200/5 MDI INH SCH (20:30)
[2020-07-22] MEDS: LORazepam 2 mg VIAL 1 ml IV PUSH PRN (02:14)
[2020-07-22] MEDS: Mometasone/Formoter 200/5 MDI INH SCH ×2 (07:31→19:38)
[2020-07-22 08:07] LABS: Calcium 9.1 mg/dL (8.6-10.3); EGFR African American 121.4 (>60); EGFR Non-African American 100.3 (>60); Magnesium 1.7 mg/dL (1.9-2.7); Potassium 3.4 mmol/L (3.5-5.0)
[2020-07-22] MEDS ORDERED: Potassium Chlor 20 meq TAB.ER PO ONE (08:22)
[2020-07-22] MEDS ORDERED: Magnesium Sulfate IV 3 GM in NS 0.9% 100 ml BAG 100 ML IVPB ONE (08:22)
[2020-07-22] MEDS: Vitamin THERAPEUTIC TAB PO SCH (09:23)
[2020-07-22] MEDS: Enoxaparin 40 MG/0.4 ML SYR SUBCUT SCH (09:26)
[2020-07-22] MEDS ORDERED: Al Hydrox/Mg Hydrox/Simet LIQ 30 ML UDC PO PRN (13:46)
[2020-07-23 06:27] LABS: Calcium 8.3 mg/dL (8.6-10.3); EGFR African American 137.1 (>60); EGFR Non-African American 113.3 (>60); Potassium 3.3 mmol/L (3.5-5.0)
[2020-07-23] MEDS ORDERED: Potassium Chlor 20 meq TAB.ER PO ONE (07:46)
[2020-07-23] MEDS: Mometasone/Formoter 200/5 MDI INH SCH (07:47)
[2020-07-23] MEDS: Enoxaparin 40 MG/0.4 ML SYR SUBCUT SCH (09:42)
[2020-07-23] MEDS: Vitamin THERAPEUTIC TAB PO SCH (09:44)
[2020-07-23 11:20] VITALS: BP 118/84
== END 2020-07-23 14:17 | disposition home or self-care (01) ==
LOC: ED 07:44 → MEDTELE 09:26
PROVIDERS: ADMIT Internal Medicine; ATTEND Internal Medicine

== ENCOUNTER 2020-12-18 09:15 | Inpatient (IN) ==
[2020-12-18] MEDS ORDERED: Lorazepam PYXIS KEY PRN (09:37)
[2020-12-18] MEDS ORDERED: LORazepam 2 mg VIAL 1 ml IV PUSH ONE (09:37)
[2020-12-18] MEDS ORDERED: Lactated Ringers 1000 ml BAG 1,000 ML IV ONE (09:38)
[2020-12-18 09:49] LABS: ABS Basophils 0.1 10^3/ul (0-0.2); ABS Lymphocytes 0.5 10^3/ul (1.0-4.8); ABS Monocytes 0.6 10^3/ul (0-0.8); ABS Neutrophils 10.7 10^3/ul (1.5-7.7); Hematocrit 42 % (35-47); Hemoglobin 13.8 g/dL (12.0-16.0); Lymphocyte % 3.9 %; Mean Corpuscular HGB Conc 33 g/dL (31-36); Mean Corpuscular Hemoglobin 32 pg (27-31); Mean Corpuscular Volume 97 fL (80-97); Mean Platelet Volume 8.9 fL (7.4-10.4); Platelet Count 134 10^3/uL (150-450); Red Blood Count 4.31 10^6 /uL (3.70-4.87); Red Cell Distribution Width 17 % (10-15); White Blood Count 11.8 10^3/uL (3.5-10.8)
[2020-12-18 09:58] LABS: INR 0.97 (0.86-1.15)
[2020-12-18] MEDS ORDERED: Ondansetron 4 mg VIAL 2 MG/ML 2 ml VIAL IV ONE (09:59)
[2020-12-18] MEDS ORDERED: Ondansetron 4 mg VIAL 2 MG/ML 2 ml VIAL ONE (10:00)
[2020-12-18 10:08] LABS: Albumin 4.9 g/dL (3.2-5.2); Albumin/Globulin Ratio 1.6 (1-3); Calcium 9.3 mg/dL (8.6-10.3); Globulin 3.1 g/dL (2-4); Magnesium 1.6 mg/dL (1.9-2.7); Potassium 3.6 mmol/L (3.5-5.0); Total Bilirubin 1.4 mg/dL (0.2-1.0)
[2020-12-18 10:09] LABS: Troponin I 0.02 ng/mL (<0.03)
[2020-12-18] MEDS ORDERED: Magnesium Sulfate IV 1GM/100ML 1 GM/100 ML BAG IV ONE (10:10)
[2020-12-18 10:33] LABS: Rapid COVID-19 Molecular Undetected (Undetected)
[2020-12-18] MEDS ORDERED: Thiamine 100 MG/ML 2 ml VIAL (200 mg) IV ONE (10:51)
[2020-12-18] MEDS ORDERED: Thiamine IV 100 MG in NS 0.9% 50 ML Q24H IV ONE (11:00)
[2020-12-18] MEDS ORDERED: D5LR 1000 ml BAG 1,000 ML IV SCH (11:00)
[2020-12-18 11:16] LABS: Phosphorus 2.6 mg/dL (2.5-5.0)
[2020-12-18 11:34] LABS: PCO2 Arterial 29 mmHg (35-45); PO2 Arterial 92 mmHg (80-100)
[2020-12-18] MEDS ORDERED: Metoclopramide 5 MG/ML VIAL (10 mg) IV ONE (12:30)
[2020-12-18] MEDS ORDERED: Pantoprazole VIAL 40 MG VIAL IV ONE (12:31)
[2020-12-18] MEDS ORDERED: Acetaminophen IV 1 GM/100ML 100 ML IV ONE (12:32)
[2020-12-18 12:52] LABS: Alcohol, S < 13 mg/dL (<13)
[2020-12-18 13:45] LABS: ALT 73 U/L (7-52); AST 77 U/L (13-39); Albumin 4.1 g/dL (3.2-5.2); Albumin/Globulin Ratio 1.8 (1-3); Alkaline Phosphatase 60 U/L (35-149); Anion Gap 18 mmol/L (2-11); Blood Urea Nitrogen 22 mg/dL (6-24); CO2 Carbon Dioxide 18 mmol/L (22-32); Calcium 8.1 mg/dL (8.6-10.3); Chloride 98 mmol/L (101-111); Globulin 2.3 g/dL (2-4); Glucose 189 mg/dL (70-100); Potassium 3.6 mmol/L (3.5-5.0); Sodium 134 mmol/L (135-145); Total Protein 6.4 g/dL (6.4-8.9)
[2020-12-18] MEDS: Nystatin SUSPENSION 100,000 UNITS/ML UDC PO SCH ×2 (17:15→21:41)
[2020-12-18] MEDS: NS 0.9% 1000 ml BAG 1,000 ML IV SCH (18:49)
[2020-12-18 19:49] LABS: Urine Appearance Cloudy; Urine Bilirubin Negative (Negative); Urine Blood 1+ (Negative); Urine Color Yellow; Urine Glucose Negative (Negative); Urine Ketones 2+ (Negative); Urine Nitrite Negative (Negative); Urine Protein 1+(30 mg/dL) (Negative); Urine Urobilinogen Negative (Negative)
[2020-12-18 19:52] LABS: Urine Bacteria 1+ (Absent); Urine Red Blood Cell Trace(0-2/hpf) (Absent); Urine Squamous Epithelial Cell Present (Absent); Urine White Blood Cell Trace(0-5/hpf) (Absent)
[2020-12-18] MEDS ORDERED: Ondansetron 4 mg VIAL 2 MG/ML 2 ml VIAL IV PRN (21:20)
[2020-12-18] MEDS: Heparin 5000 UNITS/ML 1 mL VIAL SUBCUT SCH (21:40)
[2020-12-19] MEDS: NS 0.9% 1000 ml BAG 1,000 ML IV SCH ×2 (05:56→17:05)
[2020-12-19] MEDS: Heparin 5000 UNITS/ML 1 mL VIAL SUBCUT SCH ×2 (05:57→13:51)
[2020-12-19 06:29] LABS: Calcium 8.2 mg/dL (8.6-10.3); Potassium 3.1 mmol/L (3.5-5.0)
[2020-12-19] MEDS ORDERED: Potassium Chlor 20 meq TAB.ER PO ONE (07:37)
[2020-12-19] MEDS: Nystatin SUSPENSION 100,000 UNITS/ML UDC PO SCH ×5 (08:09→19:40)
[2020-12-19] MEDS: Pantoprazole VIAL 40 MG VIAL IV SCH ×2 (08:17→19:40)
[2020-12-19 08:18] LABS: Magnesium 1.9 mg/dL (1.9-2.7)
[2020-12-19] MEDS: Mometasone/Formoter 200/5 MDI INH SCH ×3 (08:32→19:04)
[2020-12-19] MEDS ORDERED: Multivitamins/Minerals TAB PO SCH (09:00)
[2020-12-19] MEDS ORDERED: Pantoprazole VIAL 40 MG VIAL IV SCH (09:00)
[2020-12-19 09:21] LABS: ABS Eosinophils 0.1 10^3/ul (0-0.6); ABS Lymphocytes 0.9 10^3/ul (1.0-4.8); ABS Monocytes 0.5 10^3/ul (0-0.8); ABS Neutrophils 5.5 10^3/ul (1.5-7.7); Eosinophil % 1.2 %; Hematocrit 36 % (35-47); Lymphocyte % 12.8 %; Mean Corpuscular HGB Conc 34 g/dL (31-36); Mean Corpuscular Hemoglobin 32 pg (27-31); Mean Corpuscular Volume 95 fL (80-97); Mean Platelet Volume 8.7 fL (7.4-10.4); Platelet Count 75 10^3/uL (150-450); Red Blood Count 3.74 10^6 /uL (3.70-4.87); Red Cell Distribution Width 17 % (10-15)
[2020-12-19] MEDS: Al Hydrox/Mg Hydrox/Simet LIQ 30 ML UDC PO PRN ×2 (11:10→19:39)
[2020-12-19] MEDS ORDERED: Potassium Chlor 10 meq TAB PO ONE (22:07)
[2020-12-19] MEDS ORDERED: LORazepam 2 mg VIAL 1 ml IV PUSH ONE (23:50)
[2020-12-19] MEDS ORDERED: Lorazepam PYXIS KEY PRN (23:50)
[2020-12-20 05:45] LABS: Hematocrit 35 % (35-47); Mean Corpuscular HGB Conc 34 g/dL (31-36); Mean Corpuscular Hemoglobin 33 pg (27-31); Mean Corpuscular Volume 96 fL (80-97); Mean Platelet Volume 9.3 fL (7.4-10.4); Platelet Count 71 10^3/uL (150-450); Red Blood Count 3.69 10^6 /uL (3.70-4.87); Red Cell Distribution Width 17 % (10-15); White Blood Count 4.7 10^3/uL (3.5-10.8)
[2020-12-20 05:50] LABS: Calcium 8.4 mg/dL (8.6-10.3); Potassium 3.2 mmol/L (3.5-5.0)
[2020-12-20] MEDS: Mometasone/Formoter 200/5 MDI INH SCH (07:22)
[2020-12-20] MEDS ORDERED: Potassium Chlor 10 meq TAB PO ONE (07:56)
[2020-12-20 09:18] VITALS: BP 130/80
== END 2020-12-20 09:10 | disposition left against medical advice (07) | DRG 894 ==
LOC: ED 09:15 → SUATTDRO 14:23 → MED 14:23
PROVIDERS: ADMIT Internal Medicine; ATTEND Internal Medicine